=== PATIENT | male | born 1955 | race Caucasian/White ===

== ENCOUNTER 2019-10-01 08:13 | Day surgery (SDC) | payer OTHER ==
[~2019-10-01 08:13] MED LIST: Lactated Ringers 1,000 ML IV SCH
--- NOTE | 2019-10-01 08:46 | PCM.PREANE ---
Preanesthetic Assessment - Anesthesia/Transfusion/Family Hx Other Type of Anesthesia Reaction Comment: stop breathing after surgery and became wylie Family History of Anesthesia Reaction: No Transfusion History: No Prior Transfusion(s) Intubation History: Unknown - Review of Systems General: No Symptoms Pulmonary: No Symptoms Cardiovascular: No Symptoms Gastrointestinal: No Symptoms, Other (screening, never had one) Neurological: No Symptoms Other: Reports: None - Physical Assessment Vital Signs: Last Vital Signs Temp 36.8 C 10/01/19 08:41 Pulse 77 10/01/19 08:41 Resp 16 10/01/19 08:41 BP 135/79 10/01/19 08:41 Pulse Ox 95 10/01/19 08:41 Height: 5 ft 10 in Weight: 96.615 kg ASA Class: 2 Mental Status: Alert & Oriented x3 Airway Class: Mallampati = 2 Dentition: Reports: Dentures (upper), Partial (lower) Thyro-Mental Finger Breadths: 2 Mouth Opening Finger Breadths: 3 ROM/Head Extension: Full Lungs: Clear to Auscultation, Normal Respiratory Effort Cardiovascular: Regular Rate, Regular Rhythm - Allergies Allergies/Adverse Reactions: Allergies Allergy/AdvReac Type Severity Reaction Status Date / Time No Known Allergies Allergy Verified 10/01/19 08:41 - Blood Blood Available: No - Anesthesia Plan Pre-Op Medication Ordered: None - Acknowledgements Anesthesia Type Planned: MAC Pt an Appropriate Candidate for the Planned Anesthesia: Yes Alternatives and Risks of Anesthesia Discussed w Pt/Guardian: Yes Pt/Guardian Understands and Agrees with Anesthesia Plan: Yes PreAnesthesia Questionnaire HEENT History: Reports: Other (See Below) Other HEENT History: wears glasses, upper denture, lower partial Cardiovascular History: Reports: None Respiratory History: Reports: None Gastrointestinal History: Reports: None Genitourinary History: Reports: None Musculoskeletal History: Reports: Arthritis Neurological History: Reports: Other (See Below) Other Neuro History: tinnitus Psychiatric History: Reports: None Endocrine/Metabolic History: Reports: Obesity/BMI 30+, Other (See Below) ( elevated A1c, cut down on taking sugars) Hematologic History: Reports: None Immunologic History: Reports: None Oncologic (Cancer) History: Reports: None Dermatologic History: Reports: None - Past Surgical History Head Surgeries/Procedures: Reports: None HEENT Surgical History: Reports: None Cardiovascular Surgical History: Reports: None Respiratory Surgical History: Reports: None GI Surgical History: Reports: Hernia, Inguinal Male Surgical History: Reports: Vasectomy Endocrine Surgical History: Reports: None Neurological Surgical History: Reports: None Musculoskeletal Surgical History: Reports: Arthroscopic Knee, Shoulder Surgery Other Musculoskeletal Surgeries/Procedures:: shoulder arthroscopy with excision of spur, knee arthroscopy Oncologic Surgical History: Reports: None Dermatological Surgical History: Reports: None - SUBSTANCE USE Smoking Status *Q: Former Smoker (quit in ) Tobacco Use Within Last Twelve Months: No Recreational Drug Use History: No - HOME MEDS Home Medications: Home Meds . [No Known Home Meds] 09/27/19 [History] - CURRENT (IN HOUSE) MEDS Current Meds: Current Medications Lactated Ringer's (Ringers, Lactated) 1,000 mls @ 125 mls/hr IV ASDIRECTED [facility] Last Admin: 10/01/19 08:40 Dose: 125 mls/hr
[2019-10-01] MEDS ORDERED: Lidocaine 2% 5 ML SDV ONE (09:31)
[2019-10-01] MEDS ORDERED: Propofol 200 MG/20 ML SDV ONE (09:31)
[2019-10-01] MEDS ORDERED: Ketamine 500 mg/10 ML MDV ONE (09:33)
--- NOTE | 2019-10-01 10:25 | PCM.OPNOTE ---
- General Post-Op/Procedure Note Date of Surgery/Procedure: 10/01/19 Operative Procedure(s): Colonoscopy with cold cecal and rectal polypectomies Pre Op Diagnosis: Desire for colorectal cancer screening Post-Op Diagnosis: Cecal and rectal polyps Anesthesia Technique: MAC (ASA II) Primary Surgeon: Chet Conde Condition: Good Free Text/Narrative:: DICTATION [id number] CPT CODE 57530
[2019-10-01] MEDS ORDERED: Lactated Ringers 1,000 ML IV SCH (10:30)
--- NOTE | 2019-10-01 10:51 | PCM.POSTAN ---
POST ANESTHESIA ASSESSMENT - MENTAL STATUS Mental Status: Alert, Oriented - VITAL SIGNS Vital Signs: Last Vital Signs Temp 36.8 C 10/01/19 08:41 Pulse 80 10/01/19 10:40 Resp 12 10/01/19 10:40 BP 112/75 10/01/19 10:40 Pulse Ox 95 10/01/19 10:40 - RESPIRATORY Respiratory Status: Respiratory Rate WNL, Airway Patent, O2 Saturation Stable - CARDIOVASCULAR CV Status: Pulse Rate WNL, Blood Pressure Stable - GASTROINTESTINAL GI Status: No Symptoms - PAIN Pain Score: 0 - POST OP HYDRATION Hydration Status: Adequate & Stable - OBSERVATIONS Free Text/Narrative:: No anesthesia problems
--- NOTE | 2019-10-01 11:02 | PCM48HPAN ---
Post Anesthesia Note - EVALUATION WITHIN 48HRS OF ANESTHETIC Vital Signs in Normal Range: Yes Patient Participated in Evaluation: Yes Respiratory Function Stable: Yes Airway Patent: Yes Cardiovascular Function Stable: Yes Hydration Status Stable: Yes Pain Control Satisfactory: Yes Nausea and Vomiting Control Satisfactory: Yes Mental Status Recovered: Yes Vital Signs: Last Vital Signs Temp 36.8 C 10/01/19 08:41 Pulse 80 10/01/19 10:40 Resp 12 10/01/19 10:40 BP 112/75 10/01/19 10:40 Pulse Ox 95 10/01/19 10:40 - COMMENTS/OBSERVATIONS Free Text/Narrative:: No anesthesia problems
--- NOTE | 2019-10-01 15:33 | OR ---
SURGEON: Chet Conde M.D. DATE OF PROCEDURE: 10/01/2019 OPERATION PERFORMED: Colonoscopy with cold cecal and rectal polypectomy. PRIMARY SURGEON: Chet Conde MD. ANESTHESIA: MAC. ASA CLASSIFICATION: II. PREOPERATIVE DIAGNOSIS: Desire for colorectal cancer screening. POSTOPERATIVE DIAGNOSIS: Cecal and rectal polyps. DESCRIPTION OF PROCEDURE: The patient was taken to the endoscopy room and positioned on the endoscopy table in the left lateral decubitus position. Time-out was called for appropriate identification of the patient and procedure. Monitored anesthesia care was provided. The colonoscope was inserted into the rectum and advanced with mild difficulty to the cecum. One small polyp was encountered in the cecum. The cecum was also identified by internal landmarks and external pressure. Once the polyp was removed, the colonoscope was retroflexed to visualize the ascending colon from below. The colonoscope was then straightened and slowly withdrawn. The ascending colon, hepatic flexure, transverse colon, splenic flexure, descending colon, and sigmoid colon showed no other tumors, polyps, diverticula, angiodysplasia, or evidence of inflammatory bowel disease. The colonoscope was withdrawn to the rectum and another polyp was identified and removed with cold biopsy forceps. The colonoscope was retroflexed to visualize the anal orifice from above. No other polyps were identified. No hemorrhoids were noted. The colonoscope was straightened, the rectum aspirated, and the colonoscope removed. The patient tolerated the procedure well and was taken to recovery room in stable condition. DAREK / CHAKA /[id number]
== END 2019-10-01 11:15 | disposition home or self-care (01) ==
LOC: MW.SDS 08:13
PROVIDERS: ATTEND Surgery
DX: Z12.11 Encounter for screening for malignant neoplasm of colon (principal); D12.0 Benign neoplasm of cecum; K62.1 Rectal polyp; M19.90 Unspecified osteoarthritis, unspecified site; E66.9 Obesity, unspecified; Z68.30 Body mass index [BMI] 30.0-30.9, adult; Z87.891 Personal history of nicotine dependence
CPT/HCPCS: 45380; J2001; J2704; J7120

== ENCOUNTER 2021-02-17 10:24 | Observation (INO) | payer OTHER ==
[2021-02-17] MEDS ORDERED: Sodium Chloride 0.9% 1,000 ML IV ONE (11:45)
[2021-02-17] MEDS ORDERED: Morphine 4 MG/ML Syringe IVPUSH ONE (11:45)
[2021-02-17] MEDS ORDERED: Sodium Chloride 0.9% 10 ML Syringe FLUSH PRN ×2 (11:45→15:59)
[2021-02-17] MEDS ORDERED: Sodium Chloride 0.9% 2.5 ML Syringe FLUSH PRN ×2 (11:45→15:59)
[2021-02-17] MEDS ORDERED: Ondansetron 4 MG/2 ML SDV IVPUSH ONE (11:45)
--- NOTE | 2021-02-17 11:48 | EDM.PDOC ---
ED HPI GENERAL MEDICAL PROBLEM - General Chief Complaint: Abdominal Pain Stated Complaint: SEVERE ABD PAIN Time Seen by Provider: 02/17/21 10:30 Source of Information: Reports: Patient History Limitations: Reports: No Limitations - History of Present Illness INITIAL COMMENTS - FREE TEXT/NARRATIVE: 65-year-old male presents for abdominal pain. Patient notes that symptoms started roughly 3 days ago. Was initially pain in his midepigastrium with diffuse radiation. He did experience 1 episode of diarrhea and one episode of vomiting but has not had diarrhea and vomiting for the last 2 days. He states that the pain has been somewhat migratory and yesterday was bothering him mostly in his periumbilical area but today bothering him mostly in his right sided abdomen. It is worse with movement. No fevers that he is noted. Denies urinary symptoms of hematuria or dysuria. Notes no prior history of abdominal surgeries. abdomen Pain Score (Numeric/FACES): 3 - Related Data Allergies Allergy/AdvReac Type Severity Reaction Status Date / Time No Known Allergies Allergy Verified 02/17/21 11:35 Home Meds: Home Meds . [No Known Home Meds] 09/27/19 [History] Past Medical History HEENT History: Reports: Other (See Below) Other HEENT History: wears glasses, upper denture, lower partial Cardiovascular History: Reports: None Respiratory History: Reports: None Gastrointestinal History: Reports: None Genitourinary History: Reports: None Musculoskeletal History: Reports: Arthritis Neurological History: Reports: Other (See Below) Other Neuro History: tinnitus Psychiatric History: Reports: None Endocrine/Metabolic History: Reports: Obesity/BMI 30+ Hematologic History: Reports: None Immunologic History: Reports: None Oncologic (Cancer) History: Reports: None Dermatologic History: Reports: None - Infectious Disease History Infectious Disease History: Reports: None - Past Surgical History Head Surgeries/Procedures: Reports: None HEENT Surgical History: Reports: None Cardiovascular Surgical History: Reports: None Respiratory Surgical History: Reports: None GI Surgical History: Reports: Hernia, Inguinal Male Surgical History: Reports: Vasectomy Endocrine Surgical History: Reports: None Neurological Surgical History: Reports: None Musculoskeletal Surgical History: Reports: Arthroscopic Knee, Shoulder Surgery Other Musculoskeletal Surgeries/Procedures:: shoulder arthroscopy with excision of spur, knee arthroscopy Oncologic Surgical History: Reports: None Dermatological Surgical History: Reports: None Social & Family History - Family History Family Medical History: No Pertinent Family History - Tobacco Use Tobacco Use Status *Q: Former Tobacco User Used Tobacco, but Quit: Yes Month/Year Tobacco Last Used: 1986 - Caffeine Use Caffeine Use: Reports: Coffee - Recreational Drug Use Recreational Drug Use: No ED ROS GENERAL - Review of Systems Review Of Systems: Comprehensive ROS is negative, except as noted in HPI. ED EXAM, GENERAL - Physical Exam Exam: See Below Exam Limited By: No Limitations General Appearance: Alert, WD/WN, No Apparent Distress Throat/Mouth: Normal Voice, No Airway Compromise Head: Atraumatic, Normocephalic Neck: Normal Inspection Respiratory/Chest: No Respiratory Distress, Lungs Clear, Normal Breath Sounds, No Accessory Muscle Use Cardiovascular: Normal Peripheral Pulses, Regular Rate, Rhythm, No Edema GI/Abdominal: Soft, Other (RLQ TTP) Extremities: Normal Inspection Neurological: Alert, Normal Cognition, Normal Gait Psychiatric: Normal Affect, Normal Mood Skin Exam: Warm, Dry, Intact, Normal Color Course - Vital Signs Last Recorded V/S: Last Vital Signs Temp 98.9 F 02/17/21 11:35 Pulse 82 02/17/21 14:06 Resp 16 02/17/21 14:06 BP 122/75 02/17/21 14:06 Pulse Ox 95 02/17/21 14:06 - Orders/Labs/Meds Orders: Active Orders 24 hr Category Date Time Status Abdomen Ltd [US] Stat Exams 02/17/21 14:06 Ordered HYDROmorphone [Dilaudid] Med 02/17/21 14:00 Once 1 mg IVPUSH ONETIME ONE Iopamidol [Isovue Multipack-370 (76%)] Med 02/17/21 13:18 Once 100 ml IVPUSH ONETIME ONE Piperacillin/Tazobactam [Piperacil-Tazobact] 3.375 gm Med 02/17/21 13:49 Active Sodium Chloride 0.9% [Normal Saline] 50 ml IV ONETIME Sodium Chloride 0.9% [Normal Saline] 1,000 ml Med 02/17/21 11:45 Active IV .Bolus Sodium Chloride 0.9% [Saline Flush] Med 02/17/21 11:45 Active 10 ml FLUSH ASDIRECTED PRN Sodium Chloride 0.9% [Saline Flush] Med 02/17/21 11:45 Active 2.5 ml FLUSH ASDIRECTED PRN Saline Lock Insert [OM.PC] Stat Oth 02/17/21 11:45 Ordered Medication Orders Hydromorphone HCl (Hydromorphone 1 Mg/Ml Syringe) 1 mg IVPUSH ONETIME ONE Stop: 02/17/21 14:01 Last Admin: 02/17/21 14:14 Dose: Not Given Documented by: LORENA Sodium Chloride (Normal Saline) 1,000 mls @ 999 mls/hr IV .Bolus ONE Stop: 02/17/21 12:45 Last Admin: 02/17/21 12:06 Dose: 999 mls/hr Documented by: LORENA Piperacillin Sod/Tazobactam (Sod 3.375 gm/ Sodium Chloride) 50 mls @ 100 mls/hr IV ONETIME ONE Stop: 02/17/21 14:18 Last Admin: 02/17/21 14:03 Dose: 100 mls/hr Documented by: LORENA Iopamidol (Iopamidol 755 Mg/Ml 500 Ml Multipack Bottle) 100 ml IVPUSH ONETIME ONE Stop: 02/17/21 13:19 Last Admin: 02/17/21 13:18 Dose: 100 ml Documented by: MARCUS Sodium Chloride (Sodium Chloride 0.9% 10 Ml Syringe) 10 ml FLUSH ASDIRECTED PRN PRN Reason: Keep Vein Open Last Admin: 02/17/21 12:05 Dose: 10 ml Documented by: LORENA Sodium Chloride (Sodium Chloride 0.9% 2.5 Ml Syringe) 2.5 ml FLUSH ASDIRECTED PRN PRN Reason: Keep Vein Open Last Admin: 02/17/21 12:06 Dose: 2.5 ml Documented by: LORENA Labs: Laboratory Tests 02/17/21 02/17/21 02/17/21 Range/Units 12:08 12:08 12:08 WBC 7.44 (4.0-11.0) K/uL RBC 4.82 (4.50-5.90) M/uL Hgb 14.1 (13.0-17.0) g/dL Hct 41.3 (38.0-50.0) % MCV 85.7 (80.0-98.0) fL MCH 29.3 (27.0-32.0) pg MCHC 34.1 (31.0-37.0) g/dL RDW Std Deviation 41.6 (28.0-62.0) fl RDW Coeff of Carmen 13 (11.0-15.0) % Plt Count 184 (150-400) K/uL MPV 9.10 (7.40-12.00) fL Neut % (Auto) 69.3 (48.0-80.0) % Lymph % (Auto) 15.5 L (16.0-40.0) % [place] % (Auto) 14.0 (0.0-15.0) % Eos % (Auto) 0.9 (0.0-7.0) % Baso % (Auto) 0.3 (0.0-1.5) % Neut # (Auto) 5.2 (1.4-5.7) K/uL Lymph # (Auto) 1.2 (0.6-2.4) K/uL [place] # (Auto) 1.0 H (0.0-0.8) K/uL Eos # (Auto) 0.1 (0.0-0.7) K/uL Baso # (Auto) 0.0 (0.0-0.1) K/uL Nucleated RBC % 0.0 /100WBC Nucleated RBCs # 0 K/uL Sodium 138 (136-148) mmol/L Potassium 4.0 (3.5-5.1) mmol/L Chloride 104 (98-107) mmol/L Carbon Dioxide 26.8 (21.0-32.0) mmol/L BUN 17 (7.0-18.0) mg/dL Creatinine 0.9 (0.8-1.3) mg/dL Est Cr Clr Drug Dosing 85.62 mL/min Estimated GFR (MDRD) > 60.0 ml/min Glucose 109 H (74-106) mg/dL Lactic Acid 0.6 (0.4-2.0) mmol/L Calcium 8.4 L (8.5-10.1) mg/dL Total Bilirubin 1.0 (0.2-1.0) mg/dL AST 45 H (15-37) IU/L ALT 73 H (14-63) IU/L Alkaline Phosphatase 78 (46-116) U/L Total Protein 7.4 (6.4-8.2) g/dL Albumin 3.1 L (3.4-5.0) g/dL Globulin 4.3 H (2.6-4.0) g/dL Albumin/Globulin Ratio 0.7 L (0.9-1.6) Lipase 31 L (73-393) U/L SARS-CoV-2 RNA (LEXX) (NEGATIVE) 02/17/21 Range/Units 14:07 WBC (4.0-11.0) K/uL RBC (4.50-5.90) M/uL Hgb (13.0-17.0) g/dL Hct (38.0-50.0) % MCV (80.0-98.0) fL MCH (27.0-32.0) pg MCHC (31.0-37.0) g/dL RDW Std Deviation (28.0-62.0) fl RDW Coeff of Carmen (11.0-15.0) % Plt Count (150-400) K/uL MPV (7.40-12.00) fL Neut % (Auto) (48.0-80.0) % Lymph % (Auto) (16.0-40.0) % [place] % (Auto) (0.0-15.0) % Eos % (Auto) (0.0-7.0) % Baso % (Auto) (0.0-1.5) % Neut # (Auto) (1.4-5.7) K/uL Lymph # (Auto) (0.6-2.4) K/uL [place] # (Auto) (0.0-0.8) K/uL Eos # (Auto) (0.0-0.7) K/uL Baso # (Auto) (0.0-0.1) K/uL Nucleated RBC % /100WBC Nucleated RBCs # K/uL Sodium (136-148) mmol/L Potassium (3.5-5.1) mmol/L Chloride (98-107) mmol/L Carbon Dioxide (21.0-32.0) mmol/L BUN (7.0-18.0) mg/dL Creatinine (0.8-1.3) mg/dL Est Cr Clr Drug Dosing mL/min Estimated GFR (MDRD) ml/min Glucose (74-106) mg/dL Lactic Acid (0.4-2.0) mmol/L Calcium (8.5-10.1) mg/dL Total Bilirubin (0.2-1.0) mg/dL AST (15-37) IU/L ALT (14-63) IU/L Alkaline Phosphatase (46-116) U/L Total Protein (6.4-8.2) g/dL Albumin (3.4-5.0) g/dL Globulin (2.6-4.0) g/dL Albumin/Globulin Ratio (0.9-1.6) Lipase (73-393) U/L SARS-CoV-2 RNA (LEXX) NEGATIVE (NEGATIVE) Meds: Medications Generic Name Dose Route Start Last Admin Trade Name Freq PRN Reason Stop Dose Admin Hydromorphone HCl 1 mg 02/17/21 14:00 02/17/21 14:14 Hydromorphone 1 Mg/Ml Syringe IVPUSH 02/17/21 14:01 Not Given ONETIME ONE Sodium Chloride 1,000 mls @ 999 mls/hr 02/17/21 11:45 02/17/21 12:06 Normal Saline IV 02/17/21 12:45 999 mls/hr .Bolus ONE Administration Piperacillin Sod/Tazobactam 50 mls @ 100 mls/hr 02/17/21 13:49 02/17/21 14:03 Sod 3.375 gm/ Sodium Chloride IV 02/17/21 14:18 100 mls/hr ONETIME ONE Administration Iopamidol 100 ml 02/17/21 13:18 02/17/21 13:18 Iopamidol 755 Mg/Ml 500 Ml Multipack Bottle IVPUSH 02/17/21 13:19 100 ml ONETIME ONE Administration Sodium Chloride 10 ml 02/17/21 11:45 02/17/21 12:05 Sodium Chloride 0.9% 10 Ml Syringe FLUSH 10 ml ASDIRECTED PRN Administration Keep Vein Open Sodium Chloride 2.5 ml 02/17/21 11:45 02/17/21 12:06 Sodium Chloride 0.9% 2.5 Ml Syringe FLUSH 2.5 ml ASDIRECTED PRN Administration Keep Vein Open Discontinued Medications Generic Name Dose Route Start Last Admin Trade Name Freq PRN Reason Stop Dose Admin Morphine Sulfate 4 mg 02/17/21 11:45 02/17/21 12:06 Morphine 4 Mg/Ml Syringe IVPUSH 02/17/21 11:46 4 mg ONETIME ONE Administration Ondansetron HCl 4 mg 02/17/21 11:45 02/17/21 12:06 Ondansetron 4 Mg/2 Ml Sdv IVPUSH 02/17/21 11:46 4 mg ONETIME ONE Administration - Re-Assessments/Exams Free Text/Narrative Re-Assessment/Exam: 02/17/21 11:48 We will get labs. Will treat symptomatically with IV fluid bolus, Zofran, morphine. Will get CT imaging the abdomen and pelvis. We will follow up results and disposition. 02/17/21 13:51 CT imaging is suspicious for cholecystitis. Zosyn ordered. Will reach out to general surgery. 02/17/21 14:[address] Easley who requests ultrasound of RUQ; I spoke with jocelyn reza and she will get the imaging done. 02/17/21 15:20 Dr. Easley has evaluated patient and will admit to obs Departure - Departure Time of Disposition: 15:21 Disposition: Refer to Observation Condition: Good Clinical Impression: Cholecystitis - Discharge Information Referrals: Lior Parra MD [Primary Care Provider] - Forms: ED Department Discharge Sepsis Event Note (ED) - Evaluation Sepsis Screening Result: No Definite Risk - Focused Exam Vital Signs: Vital Signs Temp Pulse Resp BP Pulse Ox 02/17/21 14:06 82 16 122/75 95 02/17/21 11:35 98.9 F 80 17 117/85 96 - My Orders Last 24 Hours: My Active Orders 02/17/21 11:45 Sodium Chloride 0.9% [Normal Saline] 1,000 ml IV .Bolus Sodium Chloride 0.9% [Saline Flush] 10 ml FLUSH ASDIRECTED PRN Sodium Chloride 0.9% [Saline Flush] 2.5 ml FLUSH ASDIRECTED PRN Saline Lock Insert [OM.PC] Stat 02/17/21 13:18 Iopamidol [Isovue Multipack-370 (76%)] 100 ml IVPUSH ONETIME ONE 02/17/21 13:49 Piperacillin/Tazobactam [Piperacil-Tazobact] 3.375 gm Sodium Chloride 0.9% [Normal Saline] 50 ml IV ONETIME 02/17/21 14:00 HYDROmorphone [Dilaudid] 1 mg IVPUSH ONETIME ONE 02/17/21 14:06 Abdomen Ltd [US] Stat - Assessment/Plan Last 24 Hours: My Active Orders 02/17/21 11:45 Sodium Chloride 0.9% [Normal Saline] 1,000 ml IV .Bolus Sodium Chloride 0.9% [Saline Flush] 10 ml FLUSH ASDIRECTED PRN Sodium Chloride 0.9% [Saline Flush] 2.5 ml FLUSH ASDIRECTED PRN Saline Lock Insert [OM.PC] Stat 02/17/21 13:18 Iopamidol [Isovue Multipack-370 (76%)] 100 ml IVPUSH ONETIME ONE 02/17/21 13:49 Piperacillin/Tazobactam [Piperacil-Tazobact] 3.375 gm Sodium Chloride 0.9% [Normal Saline] 50 ml IV ONETIME 02/17/21 14:00 HYDROmorphone [Dilaudid] 1 mg IVPUSH ONETIME ONE 02/17/21 14:06 Abdomen Ltd [US] Stat
[2021-02-17 12:53] LABS: CARBON DIOXIDE,CO2 26.8 mmol/L (21.0-32.0); CHLORIDE,CL 104 mmol/L (98-107); SODIUM,NA 138 mmol/L (136-148)
[2021-02-17 12:54] LABS: BLOOD UREA NITROGEN,BUN 17 mg/dL (7.0-18.0); GLUCOSE RANDOM 109 mg/dL (74-106); LIPASE 31 U/L (73-393)
[2021-02-17] MEDS ORDERED: Iopamidol 755 MG/ML 500 ML Multipack Bottle IVPUSH ONE (13:18)
--- NOTE | 2021-02-17 13:46 | CT ---
Indication: Patient with right lower quadrant pain for 3 days Technique: Contrast enhanced CT abdomen pelvis with 100 mL Isovue 370 Comparison: No comparison Findings: The heart size is normal. There is no pericardial effusion. Basilar mild atelectasis. Spleen liver pancreas adrenal glands unremarkable normal symmetric as both keep both kidneys no hydronephrosis. Normal appendix. Small amount of free fluid in the pelvis. Urinary bladder unremarkable prostate gland mildly enlarged fat containing inguinal hernias. There is gallbladder wall thickening and/or inflammatory change of our chart changed tracks along the inferior liver/pericolic gutter. No suspicious bony lesions. Impression: 1. Gallbladder wall thickening/inflammatory change with inflammatory change starting along the inferior liver and right pericolic gutter. Findings suspicious for cholecystitis. Small amount of fluid in the pelvis. 2. Normal appendix. 3. Enlarged prostate gland. Please note that all CT scans at this facility use dose modulation, iterative reconstruction, and/or weight-based dosing when appropriate to reduce radiation dose to as low as reasonably achievable. Dictated by Christy Sebastian MD @ 02/17/2021 1:44:[address] Christy Sebastian @ Feb 17 2021 1:44PM
[2021-02-17] MEDS ORDERED: Piperacillin/Tazobactam 3.375 GM in Sodium Chloride 0.9% 50 ML IV ONE (13:49)
[2021-02-17] MEDS ORDERED: HYDROmorphone 1 MG/ML Syringe IVPUSH ONE (14:00)
--- NOTE | 2021-02-17 15:35 | US ---
INDICATION: Right lower quadrant abdominal pain for 3 days. Abnormal appearing gallbladder on today`s abdominopelvic CT. Followup. TECHNIQUE: Right upper quadrant ultrasound. COMPARISON: Correlation is made with a CT of the abdomen and pelvis from the same date. FINDINGS: Abnormal appearing gallbladder. Gallbladder wall thickening measuring up to 8.7 mm. Stones and sludge are identified within the gallbladder. Positive sonographic Olvera`s sign. Normal common bile duct measuring 5.2 mm. The liver is negative for masses or biliary dilatation. Mild hepatic enlargement with the right hepatic lobe measuring 17.8 cm in cephalocaudal extent. Hepatopetal flow within the main portal vein. The right kidney measures 11.4 cm. IMPRESSION: Abnormal gallbladder ultrasound. Acute cholecystitis is suspect particularly with the reported history of a positive sonographic Olvera`s sign. Clinical and laboratory correlation recommended. Surgical consultation suggested. Dictated by Rajiv Slater MD @ 02/17/2021 3:35:[address] Rajiv Slater @ Feb 17 2021 3:35PM
[2021-02-17] MEDS ORDERED: Acetaminophen/oxyCODONE 325-5 MG Tab PO PRN (15:59)
[2021-02-17] MEDS ORDERED: Ondansetron 4 MG/2 ML SDV IVPUSH PRN (15:59)
[2021-02-17] MEDS ORDERED: Sodium Chloride 0.9% 10 ML SDV IV PRN (15:59)
[2021-02-17] MEDS ORDERED: diphenhydrAMINE 50 MG/ML SDV IVPUSH PRN (15:59)
--- NOTE | 2021-02-17 16:13 | PCM.HP.2 ---
H&P History of Present Illness - General Date of Service: 02/17/21 Admit Problem/Dx: Admission Diagnosis/Problem Admission Diagnosis/Problem Cholecystitis Source of Information: Patient History Limitations: Reports: No Limitations - History of Present Illness Initial Comments - Free Text/Narative: Patient is a 65 year old male with diet controlled Type II diabetes who presents with abdominal pain since Friday night. He ate a sausage then went to bed. He was woken from sleep with sharp epigastric pain, diaphoresis, nausea and vomiting. He had persistent pain that then migrated to the RUQ. He subsequently developed diarrhea. Today the pain became more severe. He presented to the ER. His vitals were stable. His WBC was 7K with no left shift. He had a CT scan of the abdomen that showed a thickened and edematous gallbladder concerning for acute cholecystitis. He had an US that showed gallstones, sludge as well as confirmed a thickened and edematous gallbladder. The CBD was within normal limits at 5.2 mm. His AST and ALT were mildly elevated. His bilirubin was no rmal. He was given IV MS with great relief in his pain. abdomen Pain Score (Numeric/FACES): 3 - Related Data Allergies/Adverse Reactions: Allergies Allergy/AdvReac Type Severity Reaction Status Date / Time No Known Allergies Allergy Verified 02/17/21 11:35 Home Medications: Home Meds . [No Known Home Meds] 09/27/19 [History] Past Medical History HEENT History: Reports: Other (See Below) Other HEENT History: wears glasses, upper denture, lower partial Cardiovascular History: Reports: None Respiratory History: Reports: None Gastrointestinal History: Reports: None Genitourinary History: Reports: None Musculoskeletal History: Reports: Arthritis Neurological History: Reports: Other (See Below) Other Neuro History: tinnitus Psychiatric History: Reports: None Endocrine/Metabolic History: Reports: Diabetes, Type II, Obesity/BMI 30+ Hematologic History: Reports: None Immunologic History: Reports: None Oncologic (Cancer) History: Reports: None Dermatologic History: Reports: None - Infectious Disease History Infectious Disease History: Reports: None - Past Surgical History Head Surgeries/Procedures: Reports: None HEENT Surgical History: Reports: None Cardiovascular Surgical History: Reports: None Respiratory Surgical History: Reports: None GI Surgical History: Reports: Hernia, Inguinal Male Surgical History: Reports: Vasectomy Endocrine Surgical History: Reports: None Neurological Surgical History: Reports: None Musculoskeletal Surgical History: Reports: Arthroscopic Knee, Shoulder Surgery Other Musculoskeletal Surgeries/Procedures:: shoulder arthroscopy with excision of spur, knee arthroscopy Oncologic Surgical History: Reports: None Dermatological Surgical History: Reports: None Social & Family History - Family History Family Medical History: No Pertinent Family History - Tobacco Use Tobacco Use Status *Q: Former Tobacco User Used Tobacco, but Quit: Yes Month/Year Tobacco Last Used: 1986 - Caffeine Use Caffeine Use: Reports: Coffee - Recreational Drug Use Recreational Drug Use: No H&P Review of Systems - Review of Systems: Review Of Systems: Comprehensive ROS is negative, except as noted in HPI. Exam - Exam Exam: See Below - Vital Signs Vital Signs: Last Vital Signs Temp 37.2 C 02/17/21 11:35 Pulse 85 02/17/21 15:38 Resp 16 02/17/21 15:38 BP 116/75 02/17/21 15:38 Pulse Ox 98 02/17/21 15:38 Weight: 81.647 kg - Exam General: Alert, Oriented HEENT: Conjunctiva Clear, Mucosa Moist & [place], Posterior Pharynx Clear Neck: Supple Lungs: Clear to Auscultation, Normal Respiratory Effort Cardiovascular: Regular Rate, Regular Rhythm GI/Abdominal Exam: Other (Non-distended. Firm tender area in RUQ with postive villagran's sign. ) - Patient Data Lab Results Last 24 hrs: Laboratory Results - last 24 hr 02/17/21 02/17/21 02/17/21 Range/Units 12:08 12:08 12:08 WBC 7.44 (4.0-11.0) K/uL RBC 4.82 (4.50-5.90) M/uL Hgb 14.1 (13.0-17.0) g/dL Hct 41.3 (38.0-50.0) % MCV 85.7 (80.0-98.0) fL MCH 29.3 (27.0-32.0) pg MCHC 34.1 (31.0-37.0) g/dL RDW Std Deviation 41.6 (28.0-62.0) fl RDW Coeff of Carmen 13 (11.0-15.0) % Plt Count 184 (150-400) K/uL MPV 9.10 (7.40-12.00) fL Neut % (Auto) 69.3 (48.0-80.0) % Lymph % (Auto) 15.5 L (16.0-40.0) % [place] % (Auto) 14.0 (0.0-15.0) % Eos % (Auto) 0.9 (0.0-7.0) % Baso % (Auto) 0.3 (0.0-1.5) % Neut # (Auto) 5.2 (1.4-5.7) K/uL Lymph # (Auto) 1.2 (0.6-2.4) K/uL [place] # (Auto) 1.0 H (0.0-0.8) K/uL Eos # (Auto) 0.1 (0.0-0.7) K/uL Baso # (Auto) 0.0 (0.0-0.1) K/uL Nucleated RBC % 0.0 /100WBC Nucleated RBCs # 0 K/uL Sodium 138 (136-148) mmol/L Potassium 4.0 (3.5-5.1) mmol/L Chloride 104 (98-107) mmol/L Carbon Dioxide 26.8 (21.0-32.0) mmol/L BUN 17 (7.0-18.0) mg/dL Creatinine 0.9 (0.8-1.3) mg/dL Est Cr Clr Drug Dosing 85.62 mL/min Estimated GFR (MDRD) > 60.0 ml/min Glucose 109 H (74-106) mg/dL Lactic Acid 0.6 (0.4-2.0) mmol/L Calcium 8.4 L (8.5-10.1) mg/dL Total Bilirubin 1.0 (0.2-1.0) mg/dL AST 45 H (15-37) IU/L ALT 73 H (14-63) IU/L Alkaline Phosphatase 78 (46-116) U/L Total Protein 7.4 (6.4-8.2) g/dL Albumin 3.1 L (3.4-5.0) g/dL Globulin 4.3 H (2.6-4.0) g/dL Albumin/Globulin Ratio 0.7 L (0.9-1.6) Lipase 31 L (73-393) U/L SARS-CoV-2 RNA (LEXX) (NEGATIVE) 02/17/21 Range/Units 14:07 WBC (4.0-11.0) K/uL RBC (4.50-5.90) M/uL Hgb (13.0-17.0) g/dL Hct (38.0-50.0) % MCV (80.0-98.0) fL MCH (27.0-32.0) pg MCHC (31.0-37.0) g/dL RDW Std Deviation (28.0-62.0) fl RDW Coeff of Carmen (11.0-15.0) % Plt Count (150-400) K/uL MPV (7.40-12.00) fL Neut % (Auto) (48.0-80.0) % Lymph % (Auto) (16.0-40.0) % [place] % (Auto) (0.0-15.0) % Eos % (Auto) (0.0-7.0) % Baso % (Auto) (0.0-1.5) % Neut # (Auto) (1.4-5.7) K/uL Lymph # (Auto) (0.6-2.4) K/uL [place] # (Auto) (0.0-0.8) K/uL Eos # (Auto) (0.0-0.7) K/uL Baso # (Auto) (0.0-0.1) K/uL Nucleated RBC % /100WBC Nucleated RBCs # K/uL Sodium (136-148) mmol/L Potassium (3.5-5.1) mmol/L Chloride (98-107) mmol/L Carbon Dioxide (21.0-32.0) mmol/L BUN (7.0-18.0) mg/dL Creatinine (0.8-1.3) mg/dL Est Cr Clr Drug Dosing mL/min Estimated GFR (MDRD) ml/min Glucose (74-106) mg/dL Lactic Acid (0.4-2.0) mmol/L Calcium (8.5-10.1) mg/dL Total Bilirubin (0.2-1.0) mg/dL AST (15-37) IU/L ALT (14-63) IU/L Alkaline Phosphatase (46-116) U/L Total Protein (6.4-8.2) g/dL Albumin (3.4-5.0) g/dL Globulin (2.6-4.0) g/dL Albumin/Globulin Ratio (0.9-1.6) Lipase (73-393) U/L SARS-CoV-2 RNA (LEXX) NEGATIVE (NEGATIVE) Result Diagrams: 02/17/21 12:08 02/17/21 12:08 Sepsis Event Note - Evaluation Sepsis Screening Result: No Definite Risk - Focused Exam Vital Signs: Vital Signs Temp Pulse Resp BP Pulse Ox 02/17/21 15:38 85 16 116/75 98 02/17/21 14:06 82 16 122/75 95 02/17/21 11:35 37.2 C 80 17 117/85 96 - Problem List (1) Cholecystitis SNOMED Code(s): 88773209 ICD Code: K81.9 - CHOLECYSTITIS, UNSPECIFIED Status: Acute Current Visit: Yes Problem List Initiated/Reviewed/Updated: Yes Orders Last 24hrs: Active Orders 24 hr Category Date Time Status Patient Status [ADT] Routine ADT 02/17/21 15:59 Ordered Antiembolic Devices [RC] PER UNIT ROUTINE Care 02/17/21 16:07 Ordered Oxygen Therapy [RC] PRN Care 02/17/21 15:59 Ordered RT Incentive Spirometry [RC] Q1HWA Care 02/17/21 15:59 Ordered Up ad Julia [RC] ASDIRECTED Care 02/17/21 15:59 Ordered Vital Signs [RC] PER UNIT ROUTINE Care 02/17/21 15:59 Ordered Clear Liquid Diet [DIET] Diet 02/17/21 Lunch Active NPO After Midnight [Nothing per Oral After Midnight Diet 02/18/21 Breakfast Ordered Diet] [DIET] CBC W/O DIFF,HEMOGRAM [HEME] AM Lab 02/18/21 05:11 Ordered COMPREHENSIVE METABOLIC PN,CMP [CHEM] AM Lab 02/18/21 05:11 Ordered Acetaminophen/oxyCODONE [Percocet 325-5 MG] Med 02/17/21 15:59 Ordered 2 tab PO Q4H PRN Lactated Ringers @ 125 MLS/HR(1000ml) Med 02/17/21 16:00 Ordered Lactated Ringers [Ringers, Lactated] 1,000 ml IV ASDIRECTED Morphine Med 02/17/21 15:59 Ordered 4 mg IVPUSH Q4H PRN Ondansetron [Zofran] Med 02/17/21 15:59 Ordered 4 mg IVPUSH Q6H PRN Sodium Chloride 0.9% [Normal Saline] Med 02/17/21 15:59 Ordered 10 ml IV ASDIRECTED PRN Sodium Chloride 0.9% [Saline Flush] Med 02/17/21 11:45 Active 10 ml FLUSH ASDIRECTED PRN Sodium Chloride 0.9% [Saline Flush] Med 02/17/21 15:59 Ordered 10 ml FLUSH ASDIRECTED PRN Sodium Chloride 0.9% [Saline Flush] Med 02/17/21 11:45 Active 2.5 ml FLUSH ASDIRECTED PRN Sodium Chloride 0.9% [Saline Flush] Med 02/17/21 15:59 Ordered 2.5 ml FLUSH ASDIRECTED PRN diphenhydrAMINE [Benadryl] Med 02/17/21 15:59 Ordered 50 mg IVPUSH Q4H PRN Peripheral IV Insertion Adult [OM.PC] Urgent Oth 02/17/21 15:59 Ordered SCD [Sequential Compression Device] [OM.PC] Routine Oth 02/17/21 16:07 Ordered Saline Lock Insert [OM.PC] Stat Oth 02/17/21 11:45 Ordered Resuscitation Status Routine Resus Stat 02/17/21 15:59 Ordered Medication Orders Diphenhydramine HCl (Diphenhydramine 50 Mg/Ml Sdv) 50 mg IVPUSH Q4H PRN PRN Reason: Itching Lactated Ringer's (Ringers, Lactated) 1,000 mls @ 125 mls/hr IV ASDIRECTED Y[facility] Morphine Sulfate (Morphine 4 Mg/Ml Syringe) 4 mg IVPUSH Q4H PRN PRN Reason: Pain (severe 7-10) Ondansetron HCl (Ondansetron 4 Mg/2 Ml Sdv) 4 mg IVPUSH Q6H PRN PRN Reason: Nausea/Vomiting Oxycodone/Acetaminophen (Acetaminophen/Oxycodone 325-5 Mg Tab) 2 tab PO Q4H PRN PRN Reason: Pain (moderate 4-6) Sodium Chloride (Sodium Chloride 0.9% 10 Ml Syringe) 10 ml FLUSH ASDIRECTED PRN PRN Reason: Keep Vein Open Last Admin: 02/17/21 12:05 Dose: 10 ml Documented by: MURDNIC Sodium Chloride (Sodium Chloride 0.9% 2.5 Ml Syringe) 2.5 ml FLUSH ASDIRECTED PRN PRN Reason: Keep Vein Open Last Admin: 02/17/21 12:06 Dose: 2.5 ml Documented by: MURDNIC Sodium Chloride (Sodium Chloride 0.9% 10 Ml Syringe) 10 ml FLUSH ASDIRECTED PRN PRN Reason: Keep Vein Open Sodium Chloride (Sodium Chloride 0.9% 2.5 Ml Syringe) 2.5 ml FLUSH ASDIRECTED PRN PRN Reason: Keep Vein Open Sodium Chloride (Sodium Chloride 0.9% 10 Ml Sdv) 10 ml IV ASDIRECTED PRN PRN Reason: IV Use Assessment/Plan Comment:: The patient and I discussed the pathophysiology of acute cholecystitis. I explained that the treatment is surgery. I will attempt this laparoscopically but convert to open should I be unable to perform it safely. Given how tender he is and its radiographic imaging, I am concerned he is at higher risk of going open. We discussed the expected perioperative course including the risks of surgery including bleeding, infection or damage to surrounding structures. He verbalized understanding and wishes to proceed. Will admit overnight for fluids and IV antibiotics. NPO in am but clear liquids for now.
[2021-02-17] MEDS ORDERED: Indocyanine Green 25 MG SDV ONE (16:53)
[2021-02-17] MEDS: Morphine 4 MG/ML Syringe IVPUSH PRN ×2 (17:51→23:13)
[2021-02-17] MEDS: Lactated Ringers 1,000 ML IV SCH (17:55)
[2021-02-17] MEDS: Piperacillin/Tazobactam 3.375 GM in Sodium Chloride 0.9% 50 ML IV SCH (20:12)
[2021-02-18] MEDS: Piperacillin/Tazobactam 3.375 GM in Sodium Chloride 0.9% 50 ML IV SCH ×4 (02:18→19:20)
[2021-02-18] MEDS: Lactated Ringers 1,000 ML IV SCH ×3 (04:10→22:24)
[2021-02-18] MEDS: Morphine 4 MG/ML Syringe IVPUSH PRN ×2 (04:10→22:24)
[2021-02-18] MEDS ORDERED: Bupivacaine 0.5% 30 ML SDV ONE (06:54)
[2021-02-18] MEDS ORDERED: Octyl 2-Cyanoacrylate 1 Tube ONE (06:55)
[2021-02-18] MEDS ORDERED: Propofol 200 MG/20 ML SDV ONE (07:04)
[2021-02-18] MEDS ORDERED: fentaNYL 250 MCG/5 ML SDV ONE (07:04)
[2021-02-18] MEDS ORDERED: Midazolam 1 MG/ML 2 ML SDV ONE (07:04)
[2021-02-18] MEDS ORDERED: Sugammadex Sodium 200 MG/2 ML VIAL ONE (07:05)
[2021-02-18] MEDS ORDERED: Lidocaine 2% 5 ML SDV ONE (07:05)
[2021-02-18] MEDS ORDERED: Rocuronium Bromide 50 MG/5 ML Syringe ONE (07:05)
[2021-02-18] MEDS ORDERED: Glycopyrrolate 0.2 MG/ML SDV ONE (07:05)
[2021-02-18] MEDS ORDERED: Ondansetron 4 MG/2 ML SDV ONE (07:05)
[2021-02-18] MEDS ORDERED: Ketorolac 30 MG/ML SDV ONE (07:05)
[2021-02-18] MEDS ORDERED: Acetaminophen 1,000 MG in Premix Bag 1 BAG IV PRN (07:17)
[2021-02-18] MEDS ORDERED: fentaNYL 100 MCG/2 ML SDV IVPUSH PRN (07:17)
--- NOTE | 2021-02-18 07:17 | PCM.PREANE ---
Preanesthetic Assessment - Anesthesia/Transfusion/Family Hx Anesthesia History: Prior Anesthesia Without Reaction Other Type of Anesthesia Reaction Comment: stop breathing after surgery and became wylie Family History of Anesthesia Reaction: No Transfusion History: No Prior Transfusion(s) Intubation History: Unknown - Physical Assessment NPO Status Date: 02/18/21 NPO Status Time: 00:05 Vital Signs: Last Vital Signs Temp 36.7 C 02/18/21 04:20 Pulse 57 L 02/18/21 04:20 Resp 16 02/18/21 04:20 BP 135/72 02/18/21 04:20 Pulse Ox 94 L 02/18/21 04:20 Height: 1.78 m Weight: 83.053 kg ASA Class: 2 - Lab Values: Laboratory Last Values WBC 4.83 K/uL (4.0-11.0) 02/18/21 06:35 RBC 4.43 M/uL (4.50-5.90) L 02/18/21 06:35 Hgb 12.8 g/dL (13.0-17.0) L 02/18/21 06:35 Hct 38.4 % (38.0-50.0) 02/18/21 06:35 MCV 86.7 fL (80.0-98.0) 02/18/21 06:35 MCH 28.9 pg (27.0-32.0) 02/18/21 06:35 MCHC 33.3 g/dL (31.0-37.0) 02/18/21 06:35 RDW Std Deviation 43.3 fl (28.0-62.0) 02/18/21 06:35 RDW Coeff of Carmen 14 % (11.0-15.0) 02/18/21 06:35 Plt Count 162 K/uL (150-400) 02/18/21 06:35 MPV 9.30 fL (7.40-12.00) 02/18/21 06:35 Neut % (Auto) 69.3 % (48.0-80.0) 02/17/21 12:08 Lymph % (Auto) 15.5 % (16.0-40.0) L 02/17/21 12:08 [place] % (Auto) 14.0 % (0.0-15.0) 02/17/21 12:08 Eos % (Auto) 0.9 % (0.0-7.0) 02/17/21 12:08 Baso % (Auto) 0.3 % (0.0-1.5) 02/17/21 12:08 Neut # (Auto) 5.2 K/uL (1.4-5.7) 02/17/21 12:08 Lymph # (Auto) 1.2 K/uL (0.6-2.4) 02/17/21 12:08 [place] # (Auto) 1.0 K/uL (0.0-0.8) H 02/17/21 12:08 Eos # (Auto) 0.1 K/uL (0.0-0.7) 02/17/21 12:08 Baso # (Auto) 0.0 K/uL (0.0-0.1) 02/17/21 12:08 Nucleated RBC % 0.0 /100WBC 02/18/21 06:35 Nucleated RBCs # 0 K/uL 02/18/21 06:35 Sodium 138 mmol/L (136-148) 02/17/21 12:08 Potassium 4.0 mmol/L (3.5-5.1) 02/17/21 12:08 Chloride 104 mmol/L (98-107) 02/17/21 12:08 Carbon Dioxide 26.8 mmol/L (21.0-32.0) 02/17/21 12:08 BUN 17 mg/dL (7.0-18.0) 02/17/21 12:08 Creatinine 0.9 mg/dL (0.8-1.3) 02/17/21 12:08 Est Cr Clr Drug Dosing 85.62 mL/min 02/17/21 12:08 Estimated GFR (MDRD) > 60.0 ml/min 02/17/21 12:08 Glucose 109 mg/dL (74-106) H 02/17/21 12:08 Lactic Acid 0.6 mmol/L (0.4-2.0) 02/17/21 12:08 Calcium 8.4 mg/dL (8.5-10.1) L 02/17/21 12:08 Total Bilirubin 1.0 mg/dL (0.2-1.0) 02/17/21 12:08 AST 45 IU/L (15-37) H 02/17/21 12:08 ALT 73 IU/L (14-63) H 02/17/21 12:08 Alkaline Phosphatase 78 U/L (46-116) 02/17/21 12:08 Total Protein 7.4 g/dL (6.4-8.2) 02/17/21 12:08 Albumin 3.1 g/dL (3.4-5.0) L 02/17/21 12:08 Globulin 4.3 g/dL (2.6-4.0) H 02/17/21 12:08 Albumin/Globulin Ratio 0.7 (0.9-1.6) L 02/17/21 12:08 Lipase 31 U/L (73-393) L 02/17/21 12:08 SARS-CoV-2 RNA (LEXX) NEGATIVE (NEGATIVE) 02/17/21 14:07 - Allergies Allergies/Adverse Reactions: Allergies Allergy/AdvReac Type Severity Reaction Status Date / Time No Known Allergies Allergy Verified 02/18/21 05:47 - Acknowledgements Anesthesia Type Planned: General Anesthesia Pt an Appropriate Candidate for the Planned Anesthesia: Yes Alternatives and Risks of Anesthesia Discussed w Pt/Guardian: Yes Pt/Guardian Understands and Agrees with Anesthesia Plan: Yes PreAnesthesia Questionnaire HEENT History: Reports: Other (See Below) Other HEENT History: wears glasses, upper denture, lower partial Cardiovascular History: Reports: None Respiratory History: Reports: None Gastrointestinal History: Reports: None Genitourinary History: Reports: None Musculoskeletal History: Reports: Arthritis Neurological History: Reports: Other (See Below) Other Neuro History: tinnitus Psychiatric History: Reports: None Endocrine/Metabolic History: Reports: Diabetes, Type II, Obesity/BMI 30+ Hematologic History: Reports: None Immunologic History: Reports: None Oncologic (Cancer) History: Reports: None Dermatologic History: Reports: None - Infectious Disease History Infectious Disease History: Reports: Chicken Pox - Past Surgical History Head Surgeries/Procedures: Reports: None HEENT Surgical History: Reports: None Cardiovascular Surgical History: Reports: None Respiratory Surgical History: Reports: None GI Surgical History: Reports: Hernia, Inguinal Male Surgical History: Reports: Vasectomy Endocrine Surgical History: Reports: None Neurological Surgical History: Reports: None Musculoskeletal Surgical History: Reports: Arthroscopic Knee, Shoulder Surgery Other Musculoskeletal Surgeries/Procedures:: shoulder arthroscopy with excision of spur, knee arthroscopy Oncologic Surgical History: Reports: None Dermatological Surgical History: Reports: None - SUBSTANCE USE Tobacco Use Status *Q: Former Tobacco User Tobacco Use Within Last Twelve Months: No Second Hand Smoke Exposure: No Recreational Drug Use History: No - HOME MEDS Home Medications: Home Meds . [No Known Home Meds] 09/27/19 [History] - CURRENT (IN HOUSE) MEDS Current Meds: Current Medications Diphenhydramine HCl (Diphenhydramine 50 Mg/Ml Sdv) 50 mg IVPUSH Q4H PRN PRN Reason: Itching Lactated Ringer's (Ringers, Lactated) 1,000 mls @ 125 mls/hr IV ASDIRECTED [facility] Last Admin: 02/18/21 04:10 Dose: 125 mls/hr Documented by: Piperacillin Sod/Tazobactam (Sod 3.375 gm/ Sodium Chloride) 50 mls @ 100 mls/hr IV Q6H [facility] Last Admin: 02/18/21 02:18 Dose: 100 mls/hr Documented by: Morphine Sulfate (Morphine 4 Mg/Ml Syringe) 4 mg IVPUSH Q4H PRN PRN Reason: Pain (severe 7-10) Last Admin: 02/18/21 04:10 Dose: 2 mg Documented by: Ondansetron HCl (Ondansetron 4 Mg/2 Ml Sdv) 4 mg IVPUSH Q6H PRN PRN Reason: Nausea/Vomiting Last Admin: 02/17/21 23:21 Dose: 4 mg Documented by: Oxycodone/Acetaminophen (Acetaminophen/Oxycodone 325-5 Mg Tab) 2 tab PO Q4H PRN PRN Reason: Pain (moderate 4-6) Sodium Chloride (Sodium Chloride 0.9% 10 Ml Syringe) 10 ml FLUSH ASDIRECTED PRN PRN Reason: Keep Vein Open Sodium Chloride (Sodium Chloride 0.9% 2.5 Ml Syringe) 2.5 ml FLUSH ASDIRECTED PRN PRN Reason: Keep Vein Open Last Admin: 02/17/21 16:54 Dose: 2.5 ml Documented by: Sodium Chloride (Sodium Chloride 0.9% 10 Ml Sdv) 10 ml IV ASDIRECTED PRN PRN Reason: IV Use Discontinued Medications Bupivacaine HCl (Bupivacaine 0.5% 30 Ml Sdv) Confirm Administered Dose 150 ml .ROUTE .STK-MED ONE Stop: 02/18/21 06:55 Fentanyl (Fentanyl 250 Mcg/5 Ml Sdv) Confirm Administered Dose 250 mcg .ROUTE .STK-MED ONE Stop: 02/18/21 07:05 Glycopyrrolate (Glycopyrrolate 0.2 Mg/Ml Sdv) Confirm Administered Dose 0.2 mg .ROUTE .STK-MED ONE Stop: 02/18/21 07:06 Hydromorphone HCl (Hydromorphone 1 Mg/Ml Syringe) 1 mg IVPUSH ONETIME ONE Stop: 02/17/21 14:01 Last Admin: 02/17/21 14:14 Dose: Not Given Documented by: Sodium Chloride (Normal Saline) 1,000 mls @ 999 mls/hr IV .Bolus ONE Stop: 02/17/21 12:45 Last Admin: 02/17/21 12:06 Dose: 999 mls/hr Documented by: Piperacillin Sod/Tazobactam (Sod 3.375 gm/ Sodium Chloride) 50 mls @ 100 mls/hr IV ONETIME ONE Stop: 02/17/21 14:18 Last Admin: 02/17/21 14:03 Dose: 100 mls/hr Documented by: Indocyanine Green (Indocyanine Green 25 Mg Sdv) Confirm Administered Dose 25 mg .ROUTE .STK-MED ONE Stop: 02/17/21 16:54 Iopamidol (Iopamidol 755 Mg/Ml 500 Ml Multipack Bottle) 100 ml IVPUSH ONETIME ONE Stop: 02/17/21 13:19 Last Admin: 02/17/21 13:18 Dose: 100 ml Documented by: Ketorolac Tromethamine (Ketorolac 30 Mg/Ml Sdv) Confirm Administered Dose 30 mg .ROUTE .STK-MED ONE Stop: 02/18/21 07:06 Lidocaine (Lidocaine 2% 5 Ml Sdv) Confirm Administered Dose 5 ml .ROUTE .STK-MED ONE Stop: 02/18/21 07:06 Midazolam HCl (Midazolam 1 Mg/Ml 2 Ml Sdv) Confirm Administered Dose 2 mg .ROUTE .STK-MED ONE Stop: 02/18/21 07:05 Morphine Sulfate (Morphine 4 Mg/Ml Syringe) 4 mg IVPUSH ONETIME ONE Stop: 02/17/21 11:46 Last Admin: 02/17/21 12:06 Dose: 4 mg Documented by: Octyl Cyanoacrylate (Octyl 2-Cyanoacrylate 1 Tube) Confirm Administered Dose 1 applic .ROUTE .STK-MED ONE Stop: 02/18/21 06:56 Ondansetron HCl (Ondansetron 4 Mg/2 Ml Sdv) 4 mg IVPUSH ONETIME ONE Stop: 02/17/21 11:46 Last Admin: 02/17/21 12:06 Dose: 4 mg Documented by: Ondansetron HCl (Ondansetron 4 Mg/2 Ml Sdv) Confirm Administered Dose 4 mg .ROUTE .STK-MED ONE Stop: 02/18/21 07:06 Propofol (Propofol 200 Mg/20 Ml Sdv) Confirm Administered Dose 200 mg .ROUTE .STK-MED ONE Stop: 02/18/21 07:05 Rocuronium [place] (Rocuronium [place] 50 Mg/5 Ml Syringe) Confirm Administered Dose 50 mg .ROUTE .STK-MED ONE Stop: 02/18/21 07:06 Sodium Chloride (Sodium Chloride 0.9% 10 Ml Syringe) 10 ml FLUSH ASDIRECTED PRN PRN Reason: Keep Vein Open Last Admin: 02/17/21 12:05 Dose: 10 ml Documented by: Sodium Chloride (Sodium Chloride 0.9% 2.5 Ml Syringe) 2.5 ml FLUSH ASDIRECTED PRN PRN Reason: Keep Vein Open Last Admin: 02/17/21 12:06 Dose: 2.5 ml Documented by: Sugammadex Sodium (Sugammadex Sodium 200 Mg/2 Ml Vial) Confirm Administered Dose 200 mg .ROUTE .STK-MED ONE Stop: 02/18/21 07:06
[2021-02-18 07:18] LABS: BLOOD UREA NITROGEN,BUN 9 mg/dL (7.0-18.0); CARBON DIOXIDE,CO2 30.3 mmol/L (21.0-32.0); CHLORIDE,CL 106 mmol/L (98-107); GLUCOSE RANDOM 96 mg/dL (74-106); POTASSIUM,K 4.9 mmol/L (3.5-5.1); SODIUM,NA 141 mmol/L (136-148)
--- NOTE | 2021-02-18 10:53 | PCM.SURGPN ---
- General Info Date of Service: 02/18/21 Functional Status: Reports: Other (Patient feeling ok today. Pain controlled as long as he isnt moving. VSS overnight. No nausea or vomiting. ) - Review of Systems General: Reports: No Symptoms Pulmonary: Reports: No Symptoms Cardiovascular: Reports: No Symptoms Gastrointestinal: Reports: Abdominal Pain (RUQ) Genitourinary: Reports: No Symptoms Musculoskeletal: Reports: No Symptoms Skin: Reports: No Symptoms - Patient Data Vitals - Most Recent: Last Vital Signs Temp 36.3 C 02/18/21 08:00 Pulse 59 L 02/18/21 08:00 Resp 18 02/18/21 08:00 BP 107/71 02/18/21 08:00 Pulse Ox 95 02/18/21 08:00 Weight - Most Recent: 83.053 kg I&O - Last 24 Hours: Intake & Output 02/17/21 02/18/21 02/18/21 22:59 06:59 14:59 Intake Total 640 Output Total 950 Balance -310 Lab Results Last 24 Hrs: Laboratory Results - last 24 hr 02/17/21 02/17/21 02/17/21 Range/Units 12:08 12:08 12:08 WBC 7.44 (4.0-11.0) K/uL RBC 4.82 (4.50-5.90) M/uL Hgb 14.1 (13.0-17.0) g/dL Hct 41.3 (38.0-50.0) % MCV 85.7 (80.0-98.0) fL MCH 29.3 (27.0-32.0) pg MCHC 34.1 (31.0-37.0) g/dL RDW Std Deviation 41.6 (28.0-62.0) fl RDW Coeff of Carmen 13 (11.0-15.0) % Plt Count 184 (150-400) K/uL MPV 9.10 (7.40-12.00) fL Neut % (Auto) 69.3 (48.0-80.0) % Lymph % (Auto) 15.5 L (16.0-40.0) % Coles % (Auto) 14.0 (0.0-15.0) % Eos % (Auto) 0.9 (0.0-7.0) % Baso % (Auto) 0.3 (0.0-1.5) % Neut # (Auto) 5.2 (1.4-5.7) K/uL Lymph # (Auto) 1.2 (0.6-2.4) K/uL Coles # (Auto) 1.0 H (0.0-0.8) K/uL Eos # (Auto) 0.1 (0.0-0.7) K/uL Baso # (Auto) 0.0 (0.0-0.1) K/uL Nucleated RBC % 0.0 /100WBC Nucleated RBCs # 0 K/uL Sodium 138 (136-148) mmol/L Potassium 4.0 (3.5-5.1) mmol/L Chloride 104 (98-107) mmol/L Carbon Dioxide 26.8 (21.0-32.0) mmol/L BUN 17 (7.0-18.0) mg/dL Creatinine 0.9 (0.8-1.3) mg/dL Est Cr Clr Drug Dosing 85.62 mL/min Estimated GFR (MDRD) > 60.0 ml/min Glucose 109 H (74-106) mg/dL Lactic Acid 0.6 (0.4-2.0) mmol/L Calcium 8.4 L (8.5-10.1) mg/dL Total Bilirubin 1.0 (0.2-1.0) mg/dL AST 45 H (15-37) IU/L ALT 73 H (14-63) IU/L Alkaline Phosphatase 78 (46-116) U/L Total Protein 7.4 (6.4-8.2) g/dL Albumin 3.1 L (3.4-5.0) g/dL Globulin 4.3 H (2.6-4.0) g/dL Albumin/Globulin Ratio 0.7 L (0.9-1.6) Lipase 31 L (73-393) U/L SARS-CoV-2 RNA (LEXX) (NEGATIVE) 02/17/21 02/18/21 02/18/21 Range/Units 14:07 06:35 06:35 WBC 4.83 (4.0-11.0) K/uL RBC 4.43 L (4.50-5.90) M/uL Hgb 12.8 L (13.0-17.0) g/dL Hct 38.4 (38.0-50.0) % MCV 86.7 (80.0-98.0) fL MCH 28.9 (27.0-32.0) pg MCHC 33.3 (31.0-37.0) g/dL RDW Std Deviation 43.3 (28.0-62.0) fl RDW Coeff of Carmen 14 (11.0-15.0) % Plt Count 162 (150-400) K/uL MPV 9.30 (7.40-12.00) fL Neut % (Auto) (48.0-80.0) % Lymph % (Auto) (16.0-40.0) % Coles % (Auto) (0.0-15.0) % Eos % (Auto) (0.0-7.0) % Baso % (Auto) (0.0-1.5) % Neut # (Auto) (1.4-5.7) K/uL Lymph # (Auto) (0.6-2.4) K/uL Coles # (Auto) (0.0-0.8) K/uL Eos # (Auto) (0.0-0.7) K/uL Baso # (Auto) (0.0-0.1) K/uL Nucleated RBC % 0.0 /100WBC Nucleated RBCs # 0 K/uL Sodium 141 (136-148) mmol/L Potassium 4.9 (3.5-5.1) mmol/L Chloride 106 (98-107) mmol/L Carbon Dioxide 30.3 (21.0-32.0) mmol/L BUN 9 (7.0-18.0) mg/dL Creatinine 0.9 (0.8-1.3) mg/dL Est Cr Clr Drug Dosing 85.62 mL/min Estimated GFR (MDRD) > 60.0 ml/min Glucose 96 (74-106) mg/dL Lactic Acid (0.4-2.0) mmol/L Calcium 8.3 L (8.5-10.1) mg/dL Total Bilirubin 2.3 H (0.2-1.0) mg/dL AST 280 H (15-37) IU/L ALT 357 H (14-63) IU/L Alkaline Phosphatase 187 H (46-116) U/L Total Protein 6.4 (6.4-8.2) g/dL Albumin 2.5 L (3.4-5.0) g/dL Globulin 3.9 (2.6-4.0) g/dL Albumin/Globulin Ratio 0.6 L (0.9-1.6) Lipase (73-393) U/L SARS-CoV-2 RNA (LEXX) NEGATIVE (NEGATIVE) Med Orders - Current: Current Medications Diphenhydramine HCl (Diphenhydramine 50 Mg/Ml Sdv) 50 mg IVPUSH Q4H PRN PRN Reason: Itching Fentanyl (Fentanyl 100 Mcg/2 Ml Sdv) 50 mcg IVPUSH Q5M PRN PRN Reason: Pain Lactated Ringer's (Ringers, Lactated) 1,000 mls @ 125 mls/hr IV ASDIRECTED [facility] Last Admin: 02/18/21 04:10 Dose: 125 mls/hr Documented by: Piperacillin Sod/Tazobactam (Sod 3.375 gm/ Sodium Chloride) 50 mls @ 100 mls/hr IV Q6H [facility] Last Admin: 02/18/21 02:18 Dose: 100 mls/hr Documented by: Acetaminophen 1,000 mg/ Premix 100 mls @ 400 mls/hr IV Q6H PRN PRN Reason: Pain Morphine Sulfate (Morphine 4 Mg/Ml Syringe) 4 mg IVPUSH Q4H PRN PRN Reason: Pain (severe 7-10) Last Admin: 02/18/21 04:10 Dose: 2 mg Documented by: Ondansetron HCl (Ondansetron 4 Mg/2 Ml Sdv) 4 mg IVPUSH Q6H PRN PRN Reason: Nausea/Vomiting Last Admin: 02/17/21 23:21 Dose: 4 mg Documented by: Oxycodone/Acetaminophen (Acetaminophen/Oxycodone 325-5 Mg Tab) 2 tab PO Q4H PRN PRN Reason: Pain (moderate 4-6) Sodium Chloride (Sodium Chloride 0.9% 10 Ml Syringe) 10 ml FLUSH ASDIRECTED PRN PRN Reason: Keep Vein Open Sodium Chloride (Sodium Chloride 0.9% 2.5 Ml Syringe) 2.5 ml FLUSH ASDIRECTED PRN PRN Reason: Keep Vein Open Last Admin: 02/17/21 16:54 Dose: 2.5 ml Documented by: Sodium Chloride (Sodium Chloride 0.9% 10 Ml Sdv) 10 ml IV ASDIRECTED PRN PRN Reason: IV Use Discontinued Medications Bupivacaine HCl (Bupivacaine 0.5% 30 Ml Sdv) Confirm Administered Dose 120 ml .ROUTE .STK-MED ONE Stop: 02/18/21 06:55 Fentanyl (Fentanyl 250 Mcg/5 Ml Sdv) Confirm Administered Dose 250 mcg .ROUTE .STK-MED ONE Stop: 02/18/21 07:05 Glycopyrrolate (Glycopyrrolate 0.2 Mg/Ml Sdv) Confirm Administered Dose 0.2 mg .ROUTE .STK-MED ONE Stop: 02/18/21 07:06 Hydromorphone HCl (Hydromorphone 1 Mg/Ml Syringe) 1 mg IVPUSH ONETIME ONE Stop: 02/17/21 14:01 Last Admin: 02/17/21 14:14 Dose: Not Given Documented by: Sodium Chloride (Normal Saline) 1,000 mls @ 999 mls/hr IV .Bolus ONE Stop: 02/17/21 12:45 Last Admin: 02/17/21 12:06 Dose: 999 mls/hr Documented by: Piperacillin Sod/Tazobactam (Sod 3.375 gm/ Sodium Chloride) 50 mls @ 100 mls/hr IV ONETIME ONE Stop: 02/17/21 14:18 Last Admin: 02/17/21 14:03 Dose: 100 mls/hr Documented by: Indocyanine Green (Indocyanine Green 25 Mg Sdv) Confirm Administered Dose 25 mg .ROUTE .STK-MED ONE Stop: 02/17/21 16:54 Iopamidol (Iopamidol 755 Mg/Ml 500 Ml Multipack Bottle) 100 ml IVPUSH ONETIME ONE Stop: 02/17/21 13:19 Last Admin: 02/17/21 13:18 Dose: 100 ml Documented by: Ketorolac Tromethamine (Ketorolac 30 Mg/Ml Sdv) Confirm Administered Dose 30 mg .ROUTE .STK-MED ONE Stop: 02/18/21 07:06 Lidocaine (Lidocaine 2% 5 Ml Sdv) Confirm Administered Dose 5 ml .ROUTE .STK-MED ONE Stop: 02/18/21 07:06 Midazolam HCl (Midazolam 1 Mg/Ml 2 Ml Sdv) Confirm Administered Dose 2 mg .ROUTE .STK-MED ONE Stop: 02/18/21 07:05 Morphine Sulfate (Morphine 4 Mg/Ml Syringe) 4 mg IVPUSH ONETIME ONE Stop: 02/17/21 11:46 Last Admin: 02/17/21 12:06 Dose: 4 mg Documented by: Octyl Cyanoacrylate (Octyl 2-Cyanoacrylate 1 Tube) Confirm Administered Dose 1 applic .ROUTE .STK-MED ONE Stop: 02/18/21 06:56 Ondansetron HCl (Ondansetron 4 Mg/2 Ml Sdv) 4 mg IVPUSH ONETIME ONE Stop: 02/17/21 11:46 Last Admin: 02/17/21 12:06 Dose: 4 mg Documented by: Ondansetron HCl (Ondansetron 4 Mg/2 Ml Sdv) Confirm Administered Dose 4 mg .ROUTE .STK-MED ONE Stop: 02/18/21 07:06 Propofol (Propofol 200 Mg/20 Ml Sdv) Confirm Administered Dose 200 mg .ROUTE .STK-MED ONE Stop: 02/18/21 07:05 Rocuronium O[place] (Rocuronium [place] 50 Mg/5 Ml Syringe) Confirm Administered Dose 50 mg .ROUTE .STK-MED ONE Stop: 02/18/21 07:06 Sodium Chloride (Sodium Chloride 0.9% 10 Ml Syringe) 10 ml FLUSH ASDIRECTED PRN PRN Reason: Keep Vein Open Last Admin: 02/17/21 12:05 Dose: 10 ml Documented by: Sodium Chloride (Sodium Chloride 0.9% 2.5 Ml Syringe) 2.5 ml FLUSH ASDIRECTED PRN PRN Reason: Keep Vein Open Last Admin: 02/17/21 12:06 Dose: 2.5 ml Documented by: Sugammadex Sodium (Sugammadex Sodium 200 Mg/2 Ml Vial) Confirm Administered Dose 200 mg .ROUTE .STK-MED ONE Stop: 02/18/21 07:06 - Exam Quality Assessment: Supplemental Oxygen General: Alert, Oriented, Cooperative, No Acute Distress Lungs: Normal Respiratory Effort Cardiovascular: Regular Rate GI/Abdominal Exam: Other (RUQ still operator batch or continuous but less firm than yesterday. Less tender than exam yesterday as well. ) Extremities: Normal Inspection, Normal Range of Motion Skin: Warm, Dry, Intact Neurological: No New Focal Deficit Sepsis Event Note - Evaluation Sepsis Screening Result: No Definite Risk - Focused Exam Vital Signs: Vital Signs Temp Pulse Resp BP Pulse Ox 02/18/21 08:00 36.3 C 59 L 18 107/71 95 02/18/21 04:20 36.7 C 57 L 16 135/72 94 L 02/18/21 00:38 36.6 C 70 16 128/69 94 L - Problem List & Annotations (1) Cholecystitis SNOMED Code(s): 91757861 Code(s): K81.9 - CHOLECYSTITIS, UNSPECIFIED Status: Acute Current Visit: Yes (2) Transaminitis SNOMED Code(s): 996941231, 045734940 Code(s): R74.01 - ELEVATION OF LEVELS OF LIVER TRANSAMINASE LEVELS Status: Acute Current Visit: Yes - Problem List Review Problem List Initiated/Reviewed/Updated: Yes - My Orders Last 24 Hours: Active Orders 24 hr Category Date Time Status Patient Status [ADT] Routine ADT 02/17/21 15:59 Active Antiembolic Devices [RC] PER UNIT ROUTINE Care 02/17/21 16:07 Active Overnight Pulse Oximetry [RC] Click to Edit Care 02/18/21 07:17 Active Oxygen Therapy [RC] PRN Care 02/17/21 15:59 Active RT Incentive Spirometry [RC] Q1HWA Care 02/17/21 15:59 Active Up ad Julia [RC] ASDIRECTED Care 02/17/21 15:59 Active Vital Signs [RC] Q4H Care 02/17/21 15:59 Active Clear Liquid Diet [DIET] Diet 02/17/21 Lunch Active NPO After Midnight [Nothing per Oral After Midnight Diet 02/18/21 Breakfast Active Diet] [DIET] Abdomen wo Cont [MR] Stat Exams 02/18/21 09:15 Ordered CMP [COMPREHENSIVE METABOLIC PN,CMP] [CHEM] Routine Lab 02/18/21 12:00 Ordered Acetaminophen [Ofirmev 1000 mg/100 ml] 1,000 mg Med 02/18/21 07:17 Active Premix Bag 1 bag IV Q6H Acetaminophen/oxyCODONE [Percocet 325-5 MG] Med 02/17/21 15:59 Active 2 tab PO Q4H PRN Lactated Ringers [Ringers, Lactated] 1,000 ml Med 02/17/21 16:00 Active IV ASDIRECTED Morphine Med 02/17/21 15:59 Active 4 mg IVPUSH Q4H PRN Ondansetron [Zofran] Med 02/17/21 15:59 Active 4 mg IVPUSH Q6H PRN Piperacillin/Tazobactam [Piperacil-Tazobact] 3.375 gm Med 02/17/21 20:00 Active Sodium Chloride 0.9% [Normal Saline] 50 ml IV Q6H Sodium Chloride 0.9% [Normal Saline] Med 02/17/21 15:59 Active 10 ml IV ASDIRECTED PRN Sodium Chloride 0.9% [Saline Flush] Med 02/17/21 15:59 Active 10 ml FLUSH ASDIRECTED PRN Sodium Chloride 0.9% [Saline Flush] Med 02/17/21 15:59 Active 2.5 ml FLUSH ASDIRECTED PRN diphenhydrAMINE [Benadryl] Med 02/17/21 15:59 Active 50 mg IVPUSH Q4H PRN fentaNYL [Sublimaze] Med 02/18/21 07:17 Active 50 mcg IVPUSH Q5M PRN Peripheral IV Insertion Adult [OM.PC] Urgent Oth 02/17/21 15:59 Ordered SCD [Sequential Compression Device] [OM.PC] Routine Oth 02/17/21 16:07 Ordered Saline Lock Insert [OM.PC] Stat Oth 02/17/21 11:45 Ordered Resuscitation Status Routine Resus Stat 02/17/21 15:59 Ordered Medication Orders Diphenhydramine HCl (Diphenhydramine 50 Mg/Ml Sdv) 50 mg IVPUSH Q4H PRN PRN Reason: Itching Fentanyl (Fentanyl 100 Mcg/2 Ml Sdv) 50 mcg IVPUSH Q5M PRN PRN Reason: Pain Lactated Ringer's (Ringers, Lactated) 1,000 mls @ 125 mls/hr IV ASDIRECTED [facility] Last Admin: 02/18/21 04:10 Dose: 125 mls/hr Documented by: Infusion: 02/18/21 01:55 Dose: 125 mls/hr Documented by: Admin: 02/17/21 17:55 Dose: 125 mls/hr Documented by: MARTHA Piperacillin Sod/Tazobactam (Sod 3.375 gm/ Sodium Chloride) 50 mls @ 100 mls/hr IV Q6H [facility] Last Admin: 02/18/21 02:18 Dose: 100 mls/hr Documented by: Infusion: 02/17/21 20:42 Dose: 100 mls/hr Documented by: Admin: 02/17/21 20:12 Dose: 100 mls/hr Documented by: BERLIN Acetaminophen 1,000 mg/ Premix 100 mls @ 400 mls/hr IV Q6H PRN PRN Reason: Pain Morphine Sulfate (Morphine 4 Mg/Ml Syringe) 4 mg IVPUSH Q4H PRN PRN Reason: Pain (severe 7-10) Last Admin: 02/18/21 04:10 Dose: 2 mg Documented by: Admin: 02/17/21 23:13 Dose: 2 mg Documented by: Admin: 02/17/21 17:51 Dose: 4 mg Documented by: MARTHA Ondansetron HCl (Ondansetron 4 Mg/2 Ml Sdv) 4 mg IVPUSH Q6H PRN PRN Reason: Nausea/Vomiting Last Admin: 02/17/21 23:21 Dose: 4 mg Documented by: BERLIN Oxycodone/Acetaminophen (Acetaminophen/Oxycodone 325-5 Mg Tab) 2 tab PO Q4H PRN PRN Reason: Pain (moderate 4-6) Sodium Chloride (Sodium Chloride 0.9% 10 Ml Syringe) 10 ml FLUSH ASDIRECTED PRN PRN Reason: Keep Vein Open Sodium Chloride (Sodium Chloride 0.9% 2.5 Ml Syringe) 2.5 ml FLUSH ASDIRECTED PRN PRN Reason: Keep Vein Open Last Admin: 02/17/21 16:54 Dose: 2.5 ml Documented by: MARTHA Sodium Chloride (Sodium Chloride 0.9% 10 Ml Sdv) 10 ml IV ASDIRECTED PRN PRN Reason: IV Use - Plan Plan (Free Text/Narrative):: The patient's labs this am show a slightly improved WBC. He has a slight decrease in his hemoglobin which is likely dilutional. His LFTS have all increased and his bilirubin went from 1 to 2.3. Given this acute change, I need to rule out choledocholithiasis prior to going to the OR. This elevation could be due to inflammation as well. I ordered a stat MRI abdomen without contrast to rule this out. I explained to the patient that his surgery is on hold until this is done. Will schedule surgery tomorrow if no evidence of choledocholithiasis. If there are stones in the CBD, will transfer for ERCP and surgical management. He will remain NPO until the MRI.
[2021-02-18 13:08] LABS: BLOOD UREA NITROGEN,BUN 10 mg/dL (7.0-18.0); CARBON DIOXIDE,CO2 29.8 mmol/L (21.0-32.0); CHLORIDE,CL 104 mmol/L (98-107); GLUCOSE RANDOM 99 mg/dL (74-106); POTASSIUM,K 4.5 mmol/L (3.5-5.1); SODIUM,NA 139 mmol/L (136-148)
--- NOTE | 2021-02-18 14:05 | MR ---
INDICATION: ACUTE CHOLECYSTITIS WITH INCREASING LFTS AND BILIRIBIN Indication: Acute cholecystitis with elevated liver transaminases. Technique: MRI of the abdomen without intravenous gadolinium, MRCP. Three plane localizer, 3 plane SSFP, axial T2 weighted, axial T1 weighted in and out of phase, and high-resolution, heavily T2 weighted 2D/3D MRCP images. No intravenous gadolinium administered. Comparison: CT of the abdomen and pelvis, 02/17/2021. Ultrasound of the abdomen, 02/17/2021. Findings: Pancreatic divisum is noted. There is no evidence for acute or chronic pancreatitis. The common bile duct measures up to 6 millimeters in dimension. There is no common bile duct stone or mass. There is right upper quadrant inflammatory fat stranding, with findings typical for acute cholecystitis. Similar findings were present on the CT from 02/17/2021. There is no drainable fluid collection. Gallstones are present. Non cirrhotic liver morphology. No splenomegaly. No adrenal mass. No hydronephrosis or solid renal mass. There is no pancreatic mass or pancreatic duct dilation. No glandular atrophy. On chemical shift imaging, the liver and spleen appear hypointense on the inphase, compared with the opposed phase, images. Consider iron deposition. Impression: 1. No common bile duct stone or mass. Normal caliber biliary tree. 2. Inflammatory changes surrounding the gallbladder, consistent with cholecystitis. 3. Report called to Dr. Easley, Surgical Service, 02/18/21, 1402 hours. Dictated by Ben Brooks MD @ 02/18/2021 2:03:28 PM Dictated by: Ben Brooks MD @ 02/18/2021 14:03:37 (Electronically Signed)
[2021-02-19] MEDS: Piperacillin/Tazobactam 3.375 GM in Sodium Chloride 0.9% 50 ML IV SCH ×2 (02:31→08:28)
[2021-02-19] MEDS: Lactated Ringers 1,000 ML IV SCH (06:06)
--- NOTE | 2021-02-19 08:43 | PCM.SN.2 ---
- Free Text/Narrative Note: Patient is a 65 year old male with acute cholecystitis. He was scheduled for surgery yesterday but this was cancelled due to elevated LFTs and Bilirubin. An MRI was performed yesterday that showed no evidence of choledocholithiasis. The patient was stable overnight. WIll take to the OR today for a laparoscopic possible open cholecystectomy.
[2021-02-19] MEDS ORDERED: propofoL 100 ML ONE (08:44)
[2021-02-19] MEDS ORDERED: Sugammadex Sodium 200 MG/2 ML VIAL ONE (08:52)
[2021-02-19] MEDS ORDERED: fentaNYL 100 MCG/2 ML SDV ONE (08:52)
[2021-02-19] MEDS ORDERED: Rocuronium Bromide 50 MG/5 ML Syringe ONE ×2 (08:52→11:52)
[2021-02-19] MEDS ORDERED: Ondansetron 4 MG/2 ML SDV ONE ×2 (08:57)
[2021-02-19] MEDS ORDERED: Lidocaine 2% 5 ML SDV ONE ×2 (08:58)
[2021-02-19] MEDS ORDERED: ceFAZolin 1 GM Vial ONE (10:35)
[2021-02-19] MEDS ORDERED: Bupivacaine 0.5% 30 ML SDV ONE (10:35)
[2021-02-19] MEDS ORDERED: Morphine 10 MG/ML Syringe ONE (11:34)
[2021-02-19] MEDS ORDERED: Glycopyrrolate 0.2 MG/ML SDV ONE (11:34)
[2021-02-19] MEDS ORDERED: Albuterol 0.083% 2.5 MG/3 ML Neb Soln NEB PRN (12:06)
[2021-02-19] MEDS ORDERED: Naloxone 0.4 MG/ML Syringe IVPUSH PRN (12:06)
[2021-02-19] MEDS ORDERED: Morphine 10 MG/ML Syringe IVPUSH PRN (12:06)
[2021-02-19] MEDS ORDERED: Ondansetron 4 MG/2 ML SDV IVPUSH PRN (12:06)
[2021-02-19] MEDS ORDERED: HYDROmorphone 2 MG/ML Syringe IVPUSH PRN (12:06)
[2021-02-19] MEDS ORDERED: Metoclopramide 10 MG/2 ML SDV IVPUSH PRN (12:06)
[2021-02-19] MEDS ORDERED: fentaNYL 100 MCG/2 ML SDV IVPUSH PRN (12:06)
[2021-02-19] MEDS ORDERED: Octyl 2-Cyanoacrylate 1 Tube ONE (12:51)
--- NOTE | 2021-02-19 13:01 | PCM.OPNOTE ---
- General Post-Op/Procedure Note Date of Surgery/Procedure: 02/19/21 Operative Procedure(s): Laparoscopic cholecystectomy Findings: Severely inflamed gallbladder Pre Op Diagnosis: Acute cholecystitis Post-Op Diagnosis: same Anesthesia Technique: General ET Tube, Local Primary Surgeon: Leny Easley Fluid Replacement, Intraop: 1,500 Output, Urine Amount: 250 EBL in mLs: 100 Condition: Stable Free Text/Narrative:: Intake & Output 02/18/21 02/19/21 02/19/21 22:59 06:59 14:59 Intake Total 2320 830 50 Output Total 900 2025 Balance 1420 -1195 50
--- NOTE | 2021-02-19 13:09 | PCM.POSTAN ---
POST ANESTHESIA ASSESSMENT - MENTAL STATUS Mental Status: Alert, Oriented - VITAL SIGNS Vital Signs: Last Vital Signs Temp 97.7 F 02/19/21 08:00 Pulse 66 02/19/21 08:00 Resp 16 02/19/21 08:00 BP 118/60 02/19/21 08:00 Pulse Ox 98 02/19/21 08:00 - RESPIRATORY Respiratory Status: Respiratory Rate WNL, Airway Patent, O2 Saturation Stable - CARDIOVASCULAR CV Status: Pulse Rate WNL, Blood Pressure Stable - GASTROINTESTINAL GI Status: No Symptoms - POST OP HYDRATION Hydration Status: Adequate & Stable
--- NOTE | 2021-02-19 13:33 | PCM48HPAN ---
Post Anesthesia Note - EVALUATION WITHIN 48HRS OF ANESTHETIC Vital Signs in Normal Range: Yes Patient Participated in Evaluation: Yes Respiratory Function Stable: Yes Airway Patent: Yes Cardiovascular Function Stable: Yes Hydration Status Stable: Yes Pain Control Satisfactory: Yes Nausea and Vomiting Control Satisfactory: Yes Mental Status Recovered: Yes Vital Signs: Last Vital Signs Temp 97.7 F 02/19/21 08:00 Pulse 66 02/19/21 08:00 Resp 16 02/19/21 08:00 BP 118/60 02/19/21 08:00 Pulse Ox 98 02/19/21 08:00
--- NOTE | 2021-02-19 14:06 | PCM48HPAN ---
Post Anesthesia Note - EVALUATION WITHIN 48HRS OF ANESTHETIC Vital Signs in Normal Range: Yes Patient Participated in Evaluation: Yes Respiratory Function Stable: Yes Airway Patent: Yes Cardiovascular Function Stable: Yes Hydration Status Stable: Yes Pain Control Satisfactory: Yes Nausea and Vomiting Control Satisfactory: Yes Mental Status Recovered: Yes Vital Signs: Last Vital Signs Temp 98.6 F 02/19/21 13:01 Pulse 61 02/19/21 13:36 Resp 10 L 02/19/21 13:36 BP 126/73 02/19/21 13:36 Pulse Ox 98 02/19/21 13:36
--- NOTE | 2021-02-19 17:43 | PCM.SURGPN ---
- General Info Date of Service: 02/19/21 Date of Surgery/Procedure: 02/19/21 POD#: 0 Functional Status: Reports: Pain Controlled, Tolerating Diet, Ambulating, Urinating. Denies: New Symptoms - Review of Systems General: Reports: No Symptoms HEENT: Reports: No Symptoms Pulmonary: Reports: No Symptoms Cardiovascular: Reports: No Symptoms Gastrointestinal: Reports: No Symptoms Genitourinary: Reports: No Symptoms - Patient Data Vitals - Most Recent: Last Vital Signs Temp 36.1 C 02/19/21 16:27 Pulse 74 02/19/21 16:27 Resp 16 02/19/21 16:27 BP 139/74 02/19/21 16:27 Pulse Ox 94 L 02/19/21 16:27 Weight - Most Recent: 83.053 kg I&O - Last 24 Hours: Intake & Output 02/19/21 02/19/21 02/19/21 06:59 14:59 22:59 Intake Total 830 3550 500 Output Total 5 750 900 Balance -1195 2800 -400 Med Orders - Current: Current Medications Diphenhydramine HCl (Diphenhydramine 50 Mg/Ml Sdv) 50 mg IVPUSH Q4H PRN PRN Reason: Itching Morphine Sulfate (Morphine 4 Mg/Ml Syringe) 4 mg IVPUSH Q4H PRN PRN Reason: Pain (severe 7-10) Last Admin: 02/18/21 22:24 Dose: 2 mg Documented by: Ondansetron HCl (Ondansetron 4 Mg/2 Ml Sdv) 4 mg IVPUSH Q6H PRN PRN Reason: Nausea/Vomiting Last Admin: 02/17/21 23:21 Dose: 4 mg Documented by: Oxycodone/Acetaminophen (Acetaminophen/Oxycodone 325-5 Mg Tab) 2 tab PO Q4H PRN PRN Reason: Pain (moderate 4-6) Sodium Chloride (Sodium Chloride 0.9% 10 Ml Syringe) 10 ml FLUSH ASDIRECTED PRN PRN Reason: Keep Vein Open Sodium Chloride (Sodium Chloride 0.9% 2.5 Ml Syringe) 2.5 ml FLUSH ASDIRECTED PRN PRN Reason: Keep Vein Open Last Admin: 02/17/21 16:54 Dose: 2.5 ml Documented by: Sodium Chloride (Sodium Chloride 0.9% 10 Ml Sdv) 10 ml IV ASDIRECTED PRN PRN Reason: IV Use Discontinued Medications Albuterol (Albuterol 0.083% 2.5 Mg/3 Ml Neb Soln) 2.5 mg NEB ONETIME PRN PRN Reason: Wheezing Bupivacaine HCl (Bupivacaine 0.5% 30 Ml Sdv) Confirm Administered Dose 0 ml .ROUTE .STK-MED ONE Stop: 02/18/21 06:55 Bupivacaine HCl (Bupivacaine 0.5% 30 Ml Sdv) Confirm Administered Dose 30 ml .ROUTE .STK-MED ONE Stop: 02/19/21 10:36 Cefazolin Sodium (Cefazolin 1 Gm Vial) Confirm Administered Dose 0 gm .ROUTE .[employer]-MED ONE Stop: 02/19/21 10:36 Droperidol (Droperidol 5 Mg/2 Ml Sdv) 0.625 mg IVPUSH ONETIME PRN PRN Reason: Nausea/Vomiting Fentanyl (Fentanyl 250 Mcg/5 Ml Sdv) Confirm Administered Dose 250 mcg .ROUTE .[place]-MED ONE Stop: 02/18/21 07:05 Fentanyl (Fentanyl 100 Mcg/2 Ml Sdv) 50 mcg IVPUSH Q5M PRN PRN Reason: Pain Fentanyl (Fentanyl 100 Mcg/2 Ml Sdv) Confirm Administered Dose 100 mcg .ROUTE .[employer]-MED ONE Stop: 02/19/21 08:53 Fentanyl (Fentanyl 100 Mcg/2 Ml Sdv) 50 mcg IVPUSH Q5M PRN PRN Reason: Pain (mild 1-3) Glycopyrrolate (Glycopyrrolate 0.2 Mg/Ml Sdv) Confirm Administered Dose 0 mg .ROUTE .[employer]-MED ONE Stop: 02/18/21 07:06 Glycopyrrolate (Glycopyrrolate 0.2 Mg/Ml Sdv) Confirm Administered Dose 0.2 mg .ROUTE .[employer]-MED ONE Stop: 02/19/21 11:35 Hydromorphone HCl (Hydromorphone 1 Mg/Ml Syringe) 1 mg IVPUSH ONETIME ONE Stop: 02/17/21 14:01 Last Admin: 02/17/21 14:14 Dose: Not Given Documented by: Hydromorphone HCl (Hydromorphone 2 Mg/Ml Syringe) 0.5 mg IVPUSH Q10M PRN PRN Reason: Pain (moderate 4-6) Sodium Chloride (Normal Saline) 1,000 mls @ 999 mls/hr IV .Bolus ONE Stop: 02/17/21 12:45 Last Admin: 02/17/21 12:06 Dose: 999 mls/hr Documented by: Piperacillin Sod/Tazobactam (Sod 3.375 gm/ Sodium Chloride) 50 mls @ 100 mls/hr IV ONETIME ONE Stop: 02/17/21 14:18 Last Admin: 02/17/21 14:03 Dose: 100 mls/hr Documented by: Lactated Ringer's (Ringers, Lactated) 1,000 mls @ 125 mls/hr IV ASDIRECTED [facility] Last Admin: 02/19/21 06:06 Dose: 125 mls/hr Documented by: Piperacillin Sod/Tazobactam (Sod 3.375 gm/ Sodium Chloride) 50 mls @ 100 mls/hr IV Q6H [facility] Last Admin: 02/19/21 08:28 Dose: 100 mls/hr Documented by: Acetaminophen 1,000 mg/ Premix 100 mls @ 400 mls/hr IV Q6H PRN PRN Reason: Pain Propofol (Diprivan 100 Ml) Confirm Administered Dose 100 mls @ as directed .ROUTE .STK-MED ONE Stop: 02/19/21 08:45 Indocyanine Green (Indocyanine Green 25 Mg Sdv) Confirm Administered Dose 25 mg .ROUTE .STK-MED ONE Stop: 02/17/21 16:54 Iopamidol (Iopamidol 755 Mg/Ml 500 Ml Multipack Bottle) 100 ml IVPUSH ONETIME ONE Stop: 02/17/21 13:19 Last Admin: 02/17/21 13:18 Dose: 100 ml Documented by: Ketorolac Tromethamine (Ketorolac 30 Mg/Ml Sdv) Confirm Administered Dose 0 mg .ROUTE .STK-MED ONE Stop: 02/18/21 07:06 Lidocaine (Lidocaine 2% 5 Ml Sdv) Confirm Administered Dose 0 ml .ROUTE .STK-MED ONE Stop: 02/18/21 07:06 Lidocaine (Lidocaine 2% 5 Ml Sdv) Confirm Administered Dose 5 ml .ROUTE .STK-MED ONE Stop: 02/19/21 08:59 Lidocaine (Lidocaine 2% 5 Ml Sdv) Confirm Administered Dose 5 ml .ROUTE .STK-MED ONE Stop: 02/19/21 08:59 Metoclopramide HCl (Metoclopramide 10 Mg/2 Ml Sdv) 10 mg IVPUSH ONETIME PRN PRN Reason: Nausea/Vomiting Midazolam HCl (Midazolam 1 Mg/Ml 2 Ml Sdv) Confirm Administered Dose 2 mg .ROUTE .STK-MED ONE Stop: 02/18/21 07:05 Morphine Sulfate (Morphine 4 Mg/Ml Syringe) 4 mg IVPUSH ONETIME ONE Stop: 02/17/21 11:46 Last Admin: 02/17/21 12:06 Dose: 4 mg Documented by: Morphine Sulfate (Morphine 10 Mg/Ml Syringe) Confirm Administered Dose 10 mg .ROUTE .STK-MED ONE Stop: 02/19/21 11:35 Morphine Sulfate (Morphine 10 Mg/Ml Syringe) 2 mg IVPUSH Q10M PRN PRN Reason: Pain (severe 7-10) Naloxone HCl (Naloxone 0.4 Mg/Ml Syringe) 0.1 mg IVPUSH ASDIRECTED PRN PRN Reason: Respiratory Depression Octyl Cyanoacrylate (Octyl 2-Cyanoacrylate 1 Tube) Confirm Administered Dose 0 applic .ROUTE .STK-MED ONE Stop: 02/18/21 06:56 Octyl Cyanoacrylate (Octyl 2-Cyanoacrylate 1 Tube) Confirm Administered Dose 1 applic .ROUTE .ST-MED ONE Stop: 02/19/21 12:52 Ondansetron HCl (Ondansetron 4 Mg/2 Ml Sdv) 4 mg IVPUSH ONETIME ONE Stop: 02/17/21 11:46 Last Admin: 02/17/21 12:06 Dose: 4 mg Documented by: Ondansetron HCl (Ondansetron 4 Mg/2 Ml Sdv) Confirm Administered Dose 0 mg .ROUTE .STK-MED ONE Stop: 02/18/21 07:06 Ondansetron HCl (Ondansetron 4 Mg/2 Ml Sdv) Confirm Administered Dose 4 mg .ROUTE .STK-MED ONE Stop: 02/19/21 08:58 Ondansetron HCl (Ondansetron 4 Mg/2 Ml Sdv) Confirm Administered Dose 4 mg .ROUTE .STK-MED ONE Stop: 02/19/21 08:58 Ondansetron HCl (Ondansetron 4 Mg/2 Ml Sdv) 4 mg IVPUSH ONETIME PRN PRN Reason: Nausea/Vomiting Propofol (Propofol 200 Mg/20 Ml Sdv) Confirm Administered Dose 200 mg .ROUTE .STK-MED ONE Stop: 02/18/21 07:05 Rocuronium [place] (Rocuronium [place] 50 Mg/5 Ml Syringe) Confirm Administered Dose 0 mg .ROUTE .STK-MED ONE Stop: 02/18/21 07:06 Rocuronium [place] (Rocuronium [place] 50 Mg/5 Ml Syringe) Confirm Administered Dose 50 mg .ROUTE .STK-MED ONE Stop: 02/19/21 08:53 Rocuronium [place] (Rocuronium [place] 50 Mg/5 Ml Syringe) Confirm Administered Dose 50 mg .ROUTE .STK-MED ONE Stop: 02/19/21 11:53 Sodium Chloride (Sodium Chloride 0.9% 10 Ml Syringe) 10 ml FLUSH ASDIRECTED PRN PRN Reason: Keep Vein Open Last Admin: 02/17/21 12:05 Dose: 10 ml Documented by: Sodium Chloride (Sodium Chloride 0.9% 2.5 Ml Syringe) 2.5 ml FLUSH ASDIRECTED PRN PRN Reason: Keep Vein Open Last Admin: 02/17/21 12:06 Dose: 2.5 ml Documented by: Sugammadex Sodium (Sugammadex Sodium 200 Mg/2 Ml Vial) Confirm Administered Dose 0 mg .ROUTE .STK-MED ONE Stop: 02/18/21 07:06 Sugammadex Sodium (Sugammadex Sodium 200 Mg/2 Ml Vial) Confirm Administered Dose 200 mg .ROUTE .STK-MED ONE Stop: 02/19/21 08:53 - Exam Wound/Incisions: Healing Well, Dressing Dry and Intact Lungs: Normal Respiratory Effort Cardiovascular: Regular Rate GI/Abdominal Exam: Soft, Non-Tender, No Distention Sepsis Event Note - Evaluation Sepsis Screening Result: No Definite Risk - Focused Exam Vital Signs: Vital Signs Temp Pulse Pulse Resp BP Pulse Ox Pulse Ox 02/19/21 16:27 36.1 C 74 16 139/74 94 L 02/19/21 15:35 36.2 C 67 18 128/74 93 L 02/19/21 15:05 36.4 C 73 16 144/80 H 93 L 02/19/21 15:00 93 L 02/19/21 14:35 36.1 C 75 18 142/78 H 93 L 02/19/21 14:20 36.4 C 57 L 16 129/72 95 02/19/21 14:05 36.5 C 63 16 141/85 H 96 02/19/21 13:50 36.2 C 60 18 151/79 H 96 02/19/21 13:36 61 10 L 126/73 98 02/19/21 13:31 64 10 L 129/74 98 02/19/21 13:26 58 L 12 124/73 98 02/19/21 13:21 59 L 11 L 128/73 98 02/19/21 13:16 68 10 L 117/74 96 02/19/21 13:11 72 12 122/78 98 02/19/21 13:06 64 10 L 128/77 97 02/19/21 13:01 37 C 68 14 123/69 98 02/19/21 08:00 36.5 C 66 16 118/60 98 - Problem List & Annotations (1) Cholecystitis SNOMED Code(s): 38276692 Code(s): K81.9 - CHOLECYSTITIS, UNSPECIFIED Status: Acute Current Visit: Yes (2) Transaminitis SNOMED Code(s): 813797763, 845270848 Code(s): R74.01 - ELEVATION OF LEVELS OF LIVER TRANSAMINASE LEVELS Status: Acute Current Visit: Yes - Problem List Review Problem List Initiated/Reviewed/Updated: Yes - My Orders Last 24 Hours: Active Orders 24 hr Category Date Time Status Blood Glucose Check, Bedside [RC] PRN Care 02/19/21 12:06 Active Notify Provider Vital Signs [RC] ASDIRECTED Care 02/19/21 12:06 Active Overnight Pulse Oximetry [RC] Click to Edit Care 02/19/21 12:06 Active Oxygen Therapy [RC] PRN Care 02/19/21 12:06 Active RT Aerosol Therapy [RC] ASDIRECTED Care 02/19/21 12:06 Active RT Aerosol Therapy [RC] ASDIRECTED Care 02/19/21 12:06 Active RT BiPAP/CPAP [RC] ASDIRECTED Care 02/19/21 12:06 Active Regular Diet [DIET] Diet 02/19/21 Dinner Active Pulse Oximetry Continuous Monitoring [OM.PC] Routine Oth 02/19/21 12:06 Ordered Medication Orders Diphenhydramine HCl (Diphenhydramine 50 Mg/Ml Sdv) 50 mg IVPUSH Q4H PRN PRN Reason: Itching Morphine Sulfate (Morphine 4 Mg/Ml Syringe) 4 mg IVPUSH Q4H PRN PRN Reason: Pain (severe 7-10) Last Admin: 02/18/21 22:24 Dose: 2 mg Documented by: Admin: 02/18/21 04:10 Dose: 2 mg Documented by: Admin: 02/17/21 23:13 Dose: 2 mg Documented by: Admin: 02/17/21 17:51 Dose: 4 mg Documented by: MARTHA Ondansetron HCl (Ondansetron 4 Mg/2 Ml Sdv) 4 mg IVPUSH Q6H PRN PRN Reason: Nausea/Vomiting Last Admin: 02/17/21 23:21 Dose: 4 mg Documented by: BERLIN Oxycodone/Acetaminophen (Acetaminophen/Oxycodone 325-5 Mg Tab) 2 tab PO Q4H PRN PRN Reason: Pain (moderate 4-6) Sodium Chloride (Sodium Chloride 0.9% 10 Ml Syringe) 10 ml FLUSH ASDIRECTED PRN PRN Reason: Keep Vein Open Sodium Chloride (Sodium Chloride 0.9% 2.5 Ml Syringe) 2.5 ml FLUSH ASDIRECTED PRN PRN Reason: Keep Vein Open Last Admin: 02/17/21 16:54 Dose: 2.5 ml Documented by: MARTHA Sodium Chloride (Sodium Chloride 0.9% 10 Ml Sdv) 10 ml IV ASDIRECTED PRN PRN Reason: IV Use - Plan Plan (Free Text/Narrative):: Patient appears well after his laparoscopic cholecystectomy. Monitor overnight. If stable discharge home in am.
--- NOTE | 2021-02-19 19:35 | OR ---
SURGEON: LENY BOATENG MD DATE OF PROCEDURE: 02/19/2021 PREOPERATIVE DIAGNOSES: Acute cholecystitis secondary to cholelithiasis. POSTOPERATIVE DIAGNOSES: Acute cholecystitis secondary to cholelithiasis. PROCEDURE PERFORMED: Laparoscopic cholecystectomy. PRIMARY SURGEON: Leny Boateng MD ANESTHESIA: General endotracheal anesthesia. FLUIDS: 1500 mL of crystalloid. ESTIAMTED BLOD LOSS: 100 mL. URINE OUTPUT: 250 mL. FINDINGS: Severely inflamed gallbladder containing stones. COMPLICATIONS: None. INDICATIONS: The patient is a 65-year-old male who presented to the emergency room with right upper quadrant pain. Workup revealed thickening and edema around the gallbladder consistent with acute cholecystitis. He had stones and sludge within the gallbladder itself. He was admitted to the floor. On hospital day 1, his LFTs and bilirubin increased. An MRI was performed, which showed no evidence of choledocholithiasis. I explained the need for a laparoscopic, possible open cholecystectomy. I explained the procedure, expected perioperative course, and the risks. He verbalized understanding and wishes to proceed. PROCEDURE IN DETAIL: The patient was brought into the OR and placed on the OR table in supine position. A time-out was completed verifying the patient's name, age, date of , allergies, and procedure to be performed. General endotracheal anesthesia was induced. The left arm was tucked to the patient's side, and a Faith catheter placed. The abdomen was prepped and draped in usual standard fashion. I anesthetized the infraumbilical fold with 0.5% Marcaine plain. An 11 blade was used to make an incision along the infraumbilical fold. Cautery was used to dissect down to the level of subcutaneous fat. I bluntly dissected down to the fascia. The fascia was elevated with Kochers and incised sharply with curved Almaraz scissors. Entry into the abdomen was palpated digitally. Stay sutures were placed on either side using 0 Vicryl suture. A 12 mm Desiree trocar was placed into the abdomen. The abdomen was insufflated, and a 5 mm, 30-degree scope inserted. I inspected the area underneath my initial trocar placement. No damage to surrounding structures was noted. The patient was placed into reverse Trendelenburg position and airplaned slightly to the left. 5 mm trocars were placed in the following locations under direct visualization; one in the epigastric area, one in the right flank, and one 2 fingerbreadths below the right subcostal margin in the midclavicular line. The dome of the gallbladder was covered in omentum. This was peeled down. The gallbladder itself was tense and distended. An aspiration needle was brought in through the flank port and placed through the dome of the gallbladder. Thick tenacious green bile was then aspirated. 20 mL was aspirated, and the needle was removed. I was then able to grasp the dome of the gallbladder and elevate it cranially. The remainder of the omental attachments fell away. I then began dissection along the infundibulum. There was a thickened fatty rind around the gallbladder itself. I scored this tissue both medially and laterally and then bluntly dissected down more proximally. Using mainly blunt dissection, I cleared away the cystic duct and 1/3 of the cystic plate. Indocyanine green had been injected before the case. A bolus of this was given and I monitored the site. I saw the cystic artery light up just adjacent to the cystic duct. It was pulsatile. A photograph of this was taken. I peeled away the cystic duct from the cystic artery. I then doubly clipped and ligated the cystic artery. I turned on the indocyanine imaging again. I could clearly see the cystic duct lighting up and a photograph was taken. I doubly clipped and ligated the cystic duct. I then carried my dissection up the cystic plate. Given the severe degree of inflammation, the liver bed was edematous and bloody. There was a small arterial branch that was encountered along the lateral edge about alf up the gallbladder wall. This was doubly clipped, and hemostasis was achieved. Once the gallbladder was removed from the liver bed, it was placed in an Endo Catch bag. I had to increase my fascial opening in order to remove the gallbladder and the sac from the abdomen at the infraumbilical port site. The Desiree trocar was placed back in the abdomen. I suctioned out all of the blood that I could see and irrigated the abdomen with 800 mL of saline, which was then suctioned out. The operative field appeared hemostatic. However, to ensure hemostasis, I placed endoscopic Margarito and Surgicel into the gallbladder fossa. The 5 mm trocars were then removed under direct visualization, and the abdomen allowed to desufflate. The 12 mm Desiree trocar was removed as well. The fascia at the infraumbilical port site was closed with interrupted 0 Vicryl sutures. The subcutaneous fat layer was closed with a running 3-0 Vicryl stitch. The skin was closed with a running 4-0 Monocryl stitch. The 5 mm trocar sites were closed with interrupted 4-0 Monocryl sutures. Dermabond and sterile dressings were applied. All counts were complete and correct at the end of the case. The patient was extubated and taken to PACU in stable condition. AUDREY NULL /[id number] GEOFFREY
--- NOTE | 2021-02-20 07:58 | PCM.DCSUM1 ---
Discharge Summary - Hospital Course Free Text/Narrative:: Patient is a 65 year old male who presented to the ER with acute cholecystitis. He was admitted to the hospital for resuscitation and pain control. The next morning his LFTs and bilirubin were elevated. He underwent an MRCP that showed no evidence of choledocholithiasis. I went in the next day for a cholecystectomy. His gallbladder was distended and thickened. I was able to remove it laparoscopically. He did well post-operatively. Vitals were stable. He tolerated a regular diet and pain was well controlled with po meds. He was discharged home. - Discharge Data Discharge Date: 02/20/21 Discharge Disposition: Home, Self-Care 01 Condition: Stable - Referral to Home Health Primary Care Physician: Lior Parra MD - Discharge Diagnosis/Problem(s) (1) Cholecystitis SNOMED Code(s): 51612714 ICD Code: K81.9 - CHOLECYSTITIS, UNSPECIFIED Status: Acute (2) Transaminitis SNOMED Code(s): 371870327, 961445749 ICD Code: R74.01 - ELEVATION OF LEVELS OF LIVER TRANSAMINASE LEVELS Status: Acute - Patient Summary/Data Operative Procedure(s) Performed: Laparoscopic cholecystectomy - Patient Instructions Diet: Regular Diet as Tolerated Activity: No Lifting Over 20 Pounds (for four weeks ), Rest and Relax Today Driving: Do Not Drive (for one week ) Showering/Bathing: No Showering (for 2 days after surgeyr ), No Tub Bathing/Swimming (for 2 weeks after surgery ) Wound/Incision Care: Keep Operative Site/Wound Site Clean and Dry Notify Provider of: Fever, Increased Pain, Swelling and Redness, Drainage, Nausea and/or Vomiting - Discharge Plan *PRESCRIPTION DRUG MONITORING PROGRAM REVIEWED*: Yes *COPY OF PRESCRIPTION DRUG MONITORING REPORT IN PATIENT CINDY: Yes Home Medications: Home Meds . [No Known Home Meds] 09/27/19 [History] Patient Handouts: Cholelithiasis, Laparoscopic Cholecystectomy, Care After, Acetaminophen; Oxycodone tablets Referrals: Leny Easley MD [Physician] - 03/02/21 9:15 am (Please arrive 15 minutes early with your ID and wearing a face covering.) - Discharge Summary/Plan Comment DC Time >30 min.: No - General Info Functional Status: Reports: Pain Controlled, Tolerating Diet, Ambulating, Urinating. Denies: New Symptoms - Review of Systems General: Reports: No Symptoms HEENT: Reports: No Symptoms Pulmonary: Reports: No Symptoms Cardiovascular: Reports: No Symptoms Gastrointestinal: Reports: No Symptoms Genitourinary: Reports: No Symptoms Musculoskeletal: Reports: No Symptoms - Patient Data Vitals - Most Recent: Last Vital Signs Temp 36.3 C 02/20/21 07:46 Pulse 65 02/20/21 07:46 Resp 14 02/20/21 07:46 BP 147/80 H 02/20/21 07:46 Pulse Ox 95 02/20/21 07:46 Weight - Most Recent: 83.053 kg I&O - Last 24 hours: Intake & Output 02/19/21 02/20/21 02/20/21 22:59 06:59 14:59 Intake Total 500 590 Output Total 900 1425 Balance -400 -835 Med Orders - Current: Current Medications Diphenhydramine HCl (Diphenhydramine 50 Mg/Ml Sdv) 50 mg IVPUSH Q4H PRN PRN Reason: Itching Morphine Sulfate (Morphine 4 Mg/Ml Syringe) 4 mg IVPUSH Q4H PRN PRN Reason: Pain (severe 7-10) Last Admin: 02/18/21 22:24 Dose: 2 mg Documented by: Ondansetron HCl (Ondansetron 4 Mg/2 Ml Sdv) 4 mg IVPUSH Q6H PRN PRN Reason: Nausea/Vomiting Last Admin: 02/17/21 23:21 Dose: 4 mg Documented by: Oxycodone/Acetaminophen (Acetaminophen/Oxycodone 325-5 Mg Tab) 2 tab PO Q4H PRN PRN Reason: Pain (moderate 4-6) Last Admin: 02/19/21 19:31 Dose: 2 tab Documented by: Sodium Chloride (Sodium Chloride 0.9% 10 Ml Syringe) 10 ml FLUSH ASDIRECTED PRN PRN Reason: Keep Vein Open Sodium Chloride (Sodium Chloride 0.9% 2.5 Ml Syringe) 2.5 ml FLUSH ASDIRECTED PRN PRN Reason: Keep Vein Open Last Admin: 02/17/21 16:54 Dose: 2.5 ml Documented by: Sodium Chloride (Sodium Chloride 0.9% 10 Ml Sdv) 10 ml IV ASDIRECTED PRN PRN Reason: IV Use Discontinued Medications Albuterol (Albuterol 0.083% 2.5 Mg/3 Ml Neb Soln) 2.5 mg NEB ONETIME PRN PRN Reason: Wheezing Bupivacaine HCl (Bupivacaine 0.5% 30 Ml Sdv) Confirm Administered Dose 0 ml .ROUTE .STK-MED ONE Stop: 02/18/21 06:55 Bupivacaine HCl (Bupivacaine 0.5% 30 Ml Sdv) Confirm Administered Dose 30 ml .ROUTE .STK-MED ONE Stop: 02/19/21 10:36 Cefazolin Sodium (Cefazolin 1 Gm Vial) Confirm Administered Dose 0 gm .ROUTE .STK-MED ONE Stop: 02/19/21 10:36 Droperidol (Droperidol 5 Mg/2 Ml Sdv) 0.625 mg IVPUSH ONETIME PRN PRN Reason: Nausea/Vomiting Fentanyl (Fentanyl 250 Mcg/5 Ml Sdv) Confirm Administered Dose 250 mcg .ROUTE .STK-MED ONE Stop: 02/18/21 07:05 Fentanyl (Fentanyl 100 Mcg/2 Ml Sdv) 50 mcg IVPUSH Q5M PRN PRN Reason: Pain Fentanyl (Fentanyl 100 Mcg/2 Ml Sdv) Confirm Administered Dose 100 mcg .ROUTE .STK-MED ONE Stop: 02/19/21 08:53 Fentanyl (Fentanyl 100 Mcg/2 Ml Sdv) 50 mcg IVPUSH Q5M PRN PRN Reason: Pain (mild 1-3) Glycopyrrolate (Glycopyrrolate 0.2 Mg/Ml Sdv) Confirm Administered Dose 0 mg .ROUTE .STK-MED ONE Stop: 02/18/21 07:06 Glycopyrrolate (Glycopyrrolate 0.2 Mg/Ml Sdv) Confirm Administered Dose 0.2 mg .ROUTE .STK-MED ONE Stop: 02/19/21 11:35 Hydromorphone HCl (Hydromorphone 1 Mg/Ml Syringe) 1 mg IVPUSH ONETIME ONE Stop: 02/17/21 14:01 Last Admin: 02/17/21 14:14 Dose: Not Given Documented by: Hydromorphone HCl (Hydromorphone 2 Mg/Ml Syringe) 0.5 mg IVPUSH Q10M PRN PRN Reason: Pain (moderate 4-6) Sodium Chloride (Normal Saline) 1,000 mls @ 999 mls/hr IV .Bolus ONE Stop: 02/17/21 12:45 Last Admin: 02/17/21 12:06 Dose: 999 mls/hr Documented by: Piperacillin Sod/Tazobactam (Sod 3.375 gm/ Sodium Chloride) 50 mls @ 100 mls/hr IV ONETIME ONE Stop: 02/17/21 14:18 Last Admin: 02/17/21 14:03 Dose: 100 mls/hr Documented by: Lactated Ringer's (Ringers, Lactated) 1,000 mls @ 125 mls/hr IV ASDIRECTED [facility] Last Admin: 02/19/21 06:06 Dose: 125 mls/hr Documented by: Piperacillin Sod/Tazobactam (Sod 3.375 gm/ Sodium Chloride) 50 mls @ 100 mls/hr IV Q6H [facility] Last Admin: 02/19/21 08:28 Dose: 100 mls/hr Documented by: Acetaminophen 1,000 mg/ Premix 100 mls @ 400 mls/hr IV Q6H PRN PRN Reason: Pain Propofol (Diprivan 100 Ml) Confirm Administered Dose 100 mls @ as directed .ROUTE .STK-MED ONE Stop: 02/19/21 08:45 Indocyanine Green (Indocyanine Green 25 Mg Sdv) Confirm Administered Dose 25 mg .ROUTE .STK-MED ONE Stop: 02/17/21 16:54 Iopamidol (Iopamidol 755 Mg/Ml 500 Ml Multipack Bottle) 100 ml IVPUSH ONETIME ONE Stop: 02/17/21 13:19 Last Admin: 02/17/21 13:18 Dose: 100 ml Documented by: Ketorolac Tromethamine (Ketorolac 30 Mg/Ml Sdv) Confirm Administered Dose 0 mg .ROUTE .STK-MED ONE Stop: 02/18/21 07:06 Lidocaine (Lidocaine 2% 5 Ml Sdv) Confirm Administered Dose 0 ml .ROUTE .STK-MED ONE Stop: 02/18/21 07:06 Lidocaine (Lidocaine 2% 5 Ml Sdv) Confirm Administered Dose 5 ml .ROUTE .STK-MED ONE Stop: 02/19/21 08:59 Lidocaine (Lidocaine 2% 5 Ml Sdv) Confirm Administered Dose 5 ml .ROUTE .STK-MED ONE Stop: 02/19/21 08:59 Metoclopramide HCl (Metoclopramide 10 Mg/2 Ml Sdv) 10 mg IVPUSH ONETIME PRN PRN Reason: Nausea/Vomiting Midazolam HCl (Midazolam 1 Mg/Ml 2 Ml Sdv) Confirm Administered Dose 2 mg .ROUTE .STK-MED ONE Stop: 02/18/21 07:05 Morphine Sulfate (Morphine 4 Mg/Ml Syringe) 4 mg IVPUSH ONETIME ONE Stop: 02/17/21 11:46 Last Admin: 02/17/21 12:06 Dose: 4 mg Documented by: Morphine Sulfate (Morphine 10 Mg/Ml Syringe) Confirm Administered Dose 10 mg .ROUTE .STK-MED ONE Stop: 02/19/21 11:35 Morphine Sulfate (Morphine 10 Mg/Ml Syringe) 2 mg IVPUSH Q10M PRN PRN Reason: Pain (severe 7-10) Naloxone HCl (Naloxone 0.4 Mg/Ml Syringe) 0.1 mg IVPUSH ASDIRECTED PRN PRN Reason: Respiratory Depression Octyl Cyanoacrylate (Octyl 2-Cyanoacrylate 1 Tube) Confirm Administered Dose 0 applic .ROUTE .ST-MED ONE Stop: 02/18/21 06:56 Octyl Cyanoacrylate (Octyl 2-Cyanoacrylate 1 Tube) Confirm Administered Dose 1 applic .ROUTE .[employer] ONE Stop: 02/19/21 12:52 Ondansetron HCl (Ondansetron 4 Mg/2 Ml Sdv) 4 mg IVPUSH ONETIME ONE Stop: 02/17/21 11:46 Last Admin: 02/17/21 12:06 Dose: 4 mg Documented by: Ondansetron HCl (Ondansetron 4 Mg/2 Ml Sdv) Confirm Administered Dose 0 mg .ROUTE .STK-MED ONE Stop: 02/18/21 07:06 Ondansetron HCl (Ondansetron 4 Mg/2 Ml Sdv) Confirm Administered Dose 4 mg .ROUTE .STK-MED ONE Stop: 02/19/21 08:58 Ondansetron HCl (Ondansetron 4 Mg/2 Ml Sdv) Confirm Administered Dose 4 mg .ROUTE .STK-MED ONE Stop: 02/19/21 08:58 Ondansetron HCl (Ondansetron 4 Mg/2 Ml Sdv) 4 mg IVPUSH ONETIME PRN PRN Reason: Nausea/Vomiting Propofol (Propofol 200 Mg/20 Ml Sdv) Confirm Administered Dose 200 mg .ROUTE .STK-MED ONE Stop: 02/18/21 07:05 Rocuronium [place] (Rocuronium [place] 50 Mg/5 Ml Syringe) Confirm Administered Dose 0 mg .ROUTE .STK-MED ONE Stop: 02/18/21 07:06 Rocuronium [place] (Rocuronium [place] 50 Mg/5 Ml Syringe) Confirm Administered Dose 50 mg .ROUTE .STK-MED ONE Stop: 02/19/21 08:53 Rocuronium [place] (Rocuronium [place] 50 Mg/5 Ml Syringe) Confirm Administered Dose 50 mg .ROUTE .STK-MED ONE Stop: 02/19/21 11:53 Sodium Chloride (Sodium Chloride 0.9% 10 Ml Syringe) 10 ml FLUSH ASDIRECTED PRN PRN Reason: Keep Vein Open Last Admin: 02/17/21 12:05 Dose: 10 ml Documented by: Sodium Chloride (Sodium Chloride 0.9% 2.5 Ml Syringe) 2.5 ml FLUSH ASDIRECTED PRN PRN Reason: Keep Vein Open Last Admin: 02/17/21 12:06 Dose: 2.5 ml Documented by: Sugammadex Sodium (Sugammadex Sodium 200 Mg/2 Ml Vial) Confirm Administered Dose 0 mg .ROUTE .ST-MED ONE Stop: 02/18/21 07:06 Sugammadex Sodium (Sugammadex Sodium 200 Mg/2 Ml Vial) Confirm Administered Dose 200 mg .ROUTE .[facility]-MED ONE Stop: 02/19/21 08:53 - Exam General: Reports: Alert, Oriented, Cooperative HEENT: Reports: Pupils Equal Neck: Reports: Supple Lungs: Reports: Normal Respiratory Effort Cardiovascular: Reports: Regular Rate GI/Abdominal Exam: Soft, Non-Tender, No Distention, No Mass Back Exam: Reports: Normal Inspection Extremities: Normal Inspection Skin: Reports: Warm, Dry, Intact Wound/Incisions: Reports: Healing Well, Dressing Dry and Intact
== END 2021-02-20 09:00 | disposition home or self-care (01) ==
LOC: MW.ED 10:24 → MW.MS 15:21
PROVIDERS: ADMIT Surgery; ATTEND Surgery
DX: K80.12 Calculus of gallbladder with acute and chronic cholecystitis without obstruction (principal); R74.01 Elevation of levels of liver transaminase levels; E11.9 Type 2 diabetes mellitus without complications; E66.9 Obesity, unspecified; Z87.891 Personal history of nicotine dependence; Z68.26 Body mass index [BMI] 26.0-26.9, adult
CPT/HCPCS: 36415; 47562; 74177; 74181; 76705; 80053; 83605; 83690; 85025; 85027; 87635; 88304; 96365; 96366; 96375; 96376; 99285; A9270; G0378; J2250; J2270; J2405; J2543; J2704; J3010; J3490; J7030; J7120; Q9967; 00790; 99283; J0690; J1885; U0002